=== PATIENT | female | born 1970 | race Caucasian/White ===

== ENCOUNTER 2018-07-28 06:13 | Day surgery (SDC) | payer OTHER ==
[~2018-07-28 06:13] MED LIST: Buffered Lidocaine 1% SYRIN* 1 ML/SYRINGE INTRADERM ONE; Dexamethasone IV* 4 MG/ML 1 ML (4 MG) IV SLOW PU ONE; Famotidine IV* 10 MG/ML 2 ML (20 mg) IV ONE; Lactated Ringers 1000 ML Bag* 1,000 ML IV SCH
[2018-07-28] MEDS ORDERED: Buffered Lidocaine 1% SYRIN* 1 ML/SYRINGE INTRADERM ONE (07:13)
[2018-07-28] MEDS ORDERED: ceFAZolin 2 GM in NS PREMIX(*) 2 GM/100 ML BAG IVPB ONE (07:13)
[2018-07-28] MEDS ORDERED: Famotidine IV* 10 MG/ML 2 ML (20 mg) ONE (09:42)
[2018-07-28] MEDS ORDERED: Midazolam* 1 MG/ML 2 ML VIAL (2 MG) ONE (09:59)
[2018-07-28] MEDS ORDERED: fentaNYL* 50 MCG/ML 2 ML VIAL (100 MCG VIAL) ONE (09:59)
[2018-07-28] MEDS ORDERED: Propofol* 10 MG/ML 20 ML BTL ONE (10:07)
[2018-07-28] MEDS ORDERED: Lidocaine 2% PF * 5 ML VIAL ONE (10:16)
[2018-07-28] MEDS ORDERED: Bupivacaine 0.25% SDV PF* 10 ML VIAL INJ ONE (10:41)
[2018-07-28] MEDS ORDERED: Naloxone* 0.4 MG/ML 1 ML VIAL IV PRN (11:17)
[2018-07-28] MEDS ORDERED: Levalbuterol 0.63MG/3ML NEB* UNIT OF USE INH PRN (11:17)
[2018-07-28] MEDS ORDERED: Levalbuterol 0.63MG/3ML NEB* UNIT OF USE INH ONE (11:18)
[2018-07-28] MEDS ORDERED: HYDROcodone/ACETAMIN 5-325 MG* 1 TAB ONE (11:29)
[2018-07-28 12:50] VITALS: BP 124/70
--- NOTE | 2018-07-28 14:26 | OP ---
DATE OF OPERATION: 07/28/18 - [facility] DATE OF : 70 SURGEON: Filiberto Davis MD MUSIC COMPOSITION TEACHER: HIRA Ferguson ANESTHESIOLOGIST: Dr. Dueñas. ANESTHESIA: General. PRE-OP DIAGNOSES: 1. Left carpal tunnel syndrome. 2. Left volar wrist ganglion cyst. POST-OP DIAGNOSES: 1. Left carpal tunnel syndrome. 2. Left volar wrist ganglion cyst. OPERATIVE PROCEDURE: 1. Left endoscopic carpal tunnel release. 2. Excision of left volar wrist ganglion cyst. INDICATIONS: Lalitha has the aforementioned conditions. Cyst is quite large; it is in the typical location. The carpal tunnel is bothering her as well. ESTIMATED BLOOD LOSS: 2 mL. COMPLICATIONS: None. FINDINGS: See above and below. DESCRIPTION OF PROCEDURE: Lalitha was seen in the preoperative holding area. The correct side, site, and procedure were identified. We came back to the operating room, anesthesia was induced, the arm was prepped and draped in the usual fashion, and a time-out was performed. The arm was exsanguinated with the Esmarch and the tourniquet was inflated to 250 mmHg. I first made a 1-cm transverse incision just ulnar to the palmaris longus tendon. Dissection was carried down through the subcutaneous tissue and the transverse fascia was split longitudinally and then distally based U flap was created. A skin hook was placed to retract that. I then used the dilators and then placed a MicroAire endoscopic carpal tunnel release device under direct visualization. The transverse carpal ligament was released. I then released the distal antebrachial fascia proximally. Once I confirmed all the release, I went ahead and irrigated out the wound. Skin was closed with 4-0 nylon suture. I then made a lazy S incision over the volar wrist ganglion cyst. Over the radial aspect of the wrist, dissection was carried down. Cyst was encountered inside the FCR tendon sheath. I released the FCR tendon sheath and I excised the entirety of the cyst. I released the subsheath to make sure the cyst was not tracking deep down to the joint. I did follow down and cauterized it at its stalk. Once that was done, the wound was irrigated out. Skin was closed with 4-0 nylon suture. The wound was closed with nylon and a plaster wrist splint was applied. She was then taken to recovery room in stable condition. [id number]/[facility] #: [id number] EARL
== END 2018-07-28 12:56 | disposition home or self-care (01) ==
LOC: OR 06:13
PROVIDERS: ATTEND Orthopaedic Surgery Hand Surgery
DX: G56.02 Carpal tunnel syndrome, left upper limb (principal); M67.432 Ganglion, left wrist; Z79.84 Long term (current) use of oral hypoglycemic drugs; E11.9 Type 2 diabetes mellitus without complications; J44.9 Chronic obstructive pulmonary disease, unspecified; Z72.0 Tobacco use
CPT/HCPCS: 88304; J0690; J2250; J2704; J3010; J3490

== ENCOUNTER 2018-11-07 12:00 | Inpatient (IN) | payer OTHER ==
--- NOTE | 2018-12-24 17:59 | HP ---
Amended report to enter cosigning physician. PREOPERATIVE HISTORY AND PHYSICAL: DATE OF ADMISSION/SURGERY: 12/30/18 SURGEON: Dr. Shaina Barillas* (dictated by HIRA Peraza). PROCEDURE: Right total knee arthroplasty. CHIEF COMPLAINT: Right knee pain. HISTORY OF PRESENT ILLNESS: The patient is a 48-year-old female with more than 10 years of right knee pain that has become progressively unmanageable. She has 8/10 pain in the right knee with swelling and instability and can no longer walk more than a block without severe pain. She has difficulty with stair climbing as well as prolonged standing and has tried anti-inflammatories, supportive brace, ambulatory assistive devices, all without relief. She currently walks with a cane and is seeking surgical intervention for her severe osteoarthritis and pain. PAST MEDICAL HISTORY: Carpal tunnel syndrome; osteoarthritis; genu varum; diabetes; emphysema; insomnia; chronic back pain; radiculopathy; fibromyalgia; GERD; alcoholism, in remission; migraine headaches; hyperlipidemia; decreased hearing; depression; COPD; hypertension; vitamin D deficiency; seizure disorder ; and anxiety. PAST SURGICAL HISTORY: Tubal ligation, left foot surgery, multiple clubfoot surgeries, carpal tunnel release, and breast lumpectomy. She denies anesthetic complications with any of these procedures. CURRENT MEDICATIONS: 1. Meloxicam 15 mg 1 tab by mouth daily. 2. Bupropion HCl ER 150 mg 1 tab by mouth twice daily. 3. Vitamin B complex 1 tab by mouth daily. 4. Sumatriptan succinate 100 mg 1 tab at onset of migraine, may repeat in 2 hours as needed. 5. Simvastatin 40 mg 1 tab p.o. daily. 6. Quetiapine fumarate 300 mg 1 tab by mouth q.h.s. 7. Albuterol sulfate (2.5/3 mL) 0.083% inhaled as needed. 8. Advair Diskus 250/50 mcg/dose 1 puff twice daily. 9. Incruse Ellipta 62.5 mcg/INH inhaled 1 puff daily by mouth. 10. Omeprazole 40 mg 1 capsule by mouth daily. 11. Lyrica 100 mg 1 capsule by mouth every 12 hours. 12. Cyclobenzaprine HCl 10 mg 1 tab by mouth 3 times daily as needed for spasms. 13. Oxycodone HCl 5 mg 1 tab by mouth every 8 hours. 14. Duloxetine HCl 60 mg 1 tab by mouth daily. 15. Metformin HCl 500 mg 1 tab by mouth daily. 16. Calcium carbonate/vitamin D 600/400 mg/unit, take 1 tablet by mouth twice daily. 17. Ventolin HFA 108 (90 base) mcg/ACT 2 puffs by mouth every 4 to 6 hours as needed. 18. Chantix half a tab by mouth daily. ALLERGIES: CODEINE causes nausea, ASPIRIN causes GI upset. FAMILY HISTORY: Positive for breast cancer, drug addiction, but no heart disease or diabetes. SOCIAL HISTORY: She lives with her boyfriend, who will be caring for her postoperatively. She is currently on disability and not working. She smokes less than a pack a day of cigarettes. She denies alcohol or recreational drug use and does ambulate with cane. REVIEW OF SYSTEMS: Fourteen systems were reviewed with the patient today and are positive for right knee pain. Negative for fevers, chills, shortness of breath with exertion, chest pain, nausea, vomiting, headache, or dizziness. Review of systems is otherwise negative. PHYSICAL EXAMINATION GENERAL: She is a well-developed, well-nourished female, seated in exam chair, in no acute distress, with appropriate affect. VITAL SIGNS: Height 56 inches, weight 150 pounds. Pulse 70, blood pressure 144 /82, respirations 16. HEENT: Normocephalic, atraumatic. Hearing and vision are grossly intact, with extraocular movements intact. NECK: The trachea is midline and symmetrical. CHEST: Lungs are clear to auscultation. No wheezes, rales, or rhonchi noted. CARDIO: Regular rate and rhythm. Normal S1, S2. No murmurs, rubs, or gallops noted. ABDOMEN: Nondistended, nontender. Bowel sounds present. GENITOURINARY: Deferred. MUSCULOSKELETAL: Right lower extremity: Skin is pink, dry, and intact without abrasions or wounds. Mild effusion is noted at the knee and the patient has a varus deformity with severe subluxation and instability. She extends the knee to 5 degrees, flexes to 120 with pain and has significant varus and valgus instability. She has 5/5 strength against resistance in 4 planes in the right ankle. Sensation is intact with a 2+ dorsalis pedis pulse. IMAGING: Multiple views of the patient's right knee show end-stage osteoarthritis with severe subluxation above the tibia on the femur. She has [id number] contact medially and in the patellofemoral compartment. ASSESSMENT: Right knee osteoarthritis. PLAN: Right total knee replacement with Dr. Barillas. The patient's questions were answered and she would like to proceed. Dr. Barillas discussed the risks and benefits of surgery at today's visit. Pain medications will be dispensed postoperatively and the patient will follow up with our office 10 to 14 days after discharge. HIRA DORMAN [id number]/[facility] #: [id number] EARL
[2018-12-29] MEDS ORDERED: Buffered Lidocaine 1% SYRIN* 1 ML/SYRINGE INTRADERM ONE (13:28)
[2018-12-30] MEDS ORDERED: Tranexamic Acid 1,000 MG in NS 0.9% 50 ML* (outpatient use) IV SCH ×2
[2018-12-30] MEDS ORDERED: Dexamethasone IV* 4 MG/ML 1 ML (4 MG) IV SLOW PU ONE (06:00)
[2018-12-30] MEDS ORDERED: Levalbuterol 0.63MG/3ML NEB* UNIT OF USE INH ONE ×4 (06:00→18:31)
[2018-12-30] MEDS ORDERED: Lactated Ringers 1000 ML Bag* 1,000 ML IV SCH (06:00)
--- OUTSIDE RECORDS SUMMARY | 2018-12-30 13:20 | XMS REPORT | Continuity of Care Document ---
:1970 External Reference #:[id number] Demographics Address [address] [facility] 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 [phone] Compensation Administrator Problems Description No Information Available Social History Type Date Description Comments Sex Unknown Cigarette Use Current Cigarette Smoker 1 Pack Daily ETOH Use Currently consumes alcohol Tobacco Use Start: Unknown Patient is a current smoker, smokes every day Smoking Status Reviewed: 12/19/18 Patient is a current smoker, smokes every day Allergies, Adverse Reactions, Alerts Active Allergies Reaction Severity Comments Date Aspirin 02/13/2013 Codeine 02/13/2013 Medications Active Medications SIG Qnty Indications Ordering Date Provider Cristin sipo every 12 60caps Cornelio Parker, 11/23/2016 100mg Capsules hours as DO, MPH directed chronic pain patient Oxycodone HCL si by mouth 90tabs Cornelio Parker, 07/29/2013 5mg Tablets every 8 hours as , MPH directed chronic pain patient Chantix Starting Month Unknown George 0.5mg X 11 & 1 mg X 42 Tablets Metformin HCL 1 by mouth twice Unknown 500mg Tablets a day Albuterol Sulfate sig: as directed Unknown (2.5mg/3ML) 0.083% Nebulizer Advair HFA as needed Unknown 45-21mcg/Act Aerosol Vitamin D3 Super 1 by mouth daily Unknown Strength 2000Unit Capsules Quetiapine Fumarate 1 by mouth at Unknown 300mg bedtime Tablets Bupropion HCL ER (SR) 1 by mouth twice Unknown 150mg daily Tablets ER 12HR Cyclobenzaprine HCL si by mouth Unknown 10mg three times a Tablets day as directed Omeprazole si-2 by mouth Unknown 40mg Capsules DR every day Calcium 500+D Unknown [id number] Tablets Simvastatin take once during Unknown 40mg Tablets evevning Mobic si po qd ud 30tabs Unknown 7.5mg Tablets Vitamin B Complex qd Unknown Tablets Magnesium Oxide qd Unknown 400mg Tablets Sumatriptan Succinate si po q8h 15tabs Unknown 100mg onset headache Tablets Albuterol Inhalation 2 puff bid 1units Unknown 90mcg/Dose Aerosol Immunizations Description No Information Available Vital Signs Date Vital Result Comment 12/19/2018 2:03pm BP Systolic 132 mmHg BP Diastolic 84 mmHg Heart Rate 88 /min Respiratory Rate 20 /min Height 57 inches 4'9" Weight 154.00 lb Pain Level 8 Pain at this time. Pain Level With Medicine 8 on average with meds Pain Level Without Medicine 9 without meds BMI (Body Mass Index) 33.3 kg/m2 12/05/2018 10:39am BP Systolic 136 mmHg BP Diastolic 84 mmHg Heart Rate 82 /min Respiratory Rate 20 /min Height 57 inches 4'9" Weight 153.00 lb Pain Level 9 Pain at this time. Pain Level With Medicine 8 on average with meds Pain Level Without Medicine 10 01/29 without meds BMI (Body Mass Index) 33.1 kg/m2 Results Description No Information Available Procedures Date Code Description Status 12/05/2018 89758 Therapeutic, Prophylactic Or Diagnostic Injection Subq/Im Completed 10/02/2018 70760 Therapeutic, Prophylactic Or Diagnostic Injection Subq/Im Completed 08/29/201853139 Inject Tendon/Ligament Completed 08/29/201869343 Inject Tendon/Ligament Completed 08/29/201868118 Inject Tendon/Ligament Completed 08/29/201841690 Inject Tendon/Ligament Completed 08/29/2018 Injection, Tendon Origin/Insertion Completed 08/29/2018 Injection, Tendon Origin/Insertion Completed 08/29/2018 Injection, Single Or Mutiple Trigger Points One Or Two Completed Muscles 08/29/2018 85616 Injection For Nerve Block, Other Peripheral Nerve Or Completed Branch 08/29/2018 87195 Therapeutic, Prophylactic Or Diagnostic Injection Subq/Im Completed 08/01/2018 73207 Omt 3-4 Body Regions Completed 08/01/2018 89748 Therapeutic, Prophylactic Or Diagnostic Injection Subq/Im Completed 07/02/2018 48102 Therapeutic, Prophylactic Or Diagnostic Injection Subq/Im Completed 07/02/2018 34931 Brief Emotional/Behav Assessment W/ Scoring Doc Per Completed Standard Inst 07/02/2018 Inject Tendon/Ligament Completed 07/02/2018 Inject Tendon/Ligament Completed 07/02/201820836 Inject Tendon/Ligament Completed 07/02/2018 Inject Tendon/Ligament Completed Medical Devices Description No Information Available Encounters Type Date Location Provider Dx Diagnosis Office Visit 12/05/2018 Main Office as Of Cornelio Parker DO G89.29 Other chronic pain 10:15a 05/23/13 MPH M15.0 Primary generalized (osteo)arthritis M54.17 Radiculopathy, lumbosacral region M54.2 Cervicalgia Z79.891 assisted (current) use of opiate analgesic R53.83 Other fatigue Office Visit 11/05/2018 3:15p Main Office as Cornelio Parker G89.29 Other chronic Of 05/23/13 DO, MPH pain M15.0 Primary generalized (osteo)arthritis M54.2 Cervicalgia M54.17 Radiculopathy, lumbosacral region Z79.891 assisted (current) use of opiate analgesic Office Visit 10/02/2018 11:15a Main Office as Cornelio Parker G89.29 Other chronic Of 05/23/13 DO, MPH pain M15.0 Primary generalized (osteo)arthritis M54.5 Low back pain M54.2 Cervicalgia M54.17 Radiculopathy, lumbosacral region R53.83 Other fatigue 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 Office Visit 08/29/2018 11:30a Main Office as Cornelio Parker G89.29 Other chronic Of 05/23/13 DO, MPH pain M15.0 Primary generalized (osteo)arthritis M54.5 Low back pain M54.17 Radiculopathy, lumbosacral region M54.2 Cervicalgia M65.88 Other synovitis and tenosynovitis, other site M79.18 Myalgia, other site R53.83 Other fatigue 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 Office Visit 08/01/2018 11:00a Main Office as Cornelio Parker, G89.29 Other chronic Of 05/23/13 DO, MPH pain M15.0 Primary generalized (osteo)arthritis M54.5 Low back pain M99.03 Segmental and somatic dysfunction of lumbar region M54.2 Cervicalgia M99.01 Segmental and somatic dysfunction of cervical region M54.6 Pain in thoracic spine M99.02 Segmental and somatic dysfunction of thoracic region R53.83 Other fatigue Z79.891 assisted (current) use of opiate analgesic Office Visit 07/02/2018 11:00a Main Office as Cornelio Parker, G89.29 Other chronic Of 05/23/13 DO, MPH pain M15.0 Primary generalized (osteo)arthritis M54.2 Cervicalgia M54.5 Low back pain M65.88 Other synovitis and tenosynovitis, other site R53.83 Other fatigue 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 Z13.31 Encounter for screening for depression Assessments Date Code Description Provider 12/19/2018 G89.29 Other chronic pain Parker, Cornelio, DO, MPH 12/19/2018 M15.0 Primary generalized (osteo)arthritis Parker, Cornelio, DO, MPH 12/19/2018 M54.2 Cervicalgia Parker, Cornelio, DO, MPH 12/19/2018 M54.17 Radiculopathy, lumbosacral region Parker, Cornelio, DO, MPH 12/19/2018 M79.604 Pain in right leg Parker, Cornelio, DO, MPH 12/19/2018 R53.1 Weakness Parker, Cornelio, DO, MPH 12/19/2018 Z79.891 assisted (current) use of opiate analgesic Parker, Cornelio , DO, MPH 12/05/2018 G89.29 Other chronic pain Parker, Cornelio, DO, MPH 12/05/2018 M15.0 Primary generalized (osteo)arthritis Parker, Cornelio, DO, MPH 12/05/2018 M54.17 Radiculopathy, lumbosacral region Parker, Cornelio, DO, MPH 12/05/2018 M54.2 Cervicalgia Parker, Cornelio, DO, MPH 12/05/2018 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 Parker, Cornelio , DO, MPH 12/05/2018 R53.83 Other fatigue Parker, Cornelio, DO, MPH 11/05/2018 G89.29 Other chronic pain Parker, Cornelio, DO, MPH 11/05/2018 M15.0 Primary generalized (osteo)arthritis Parker, Cornelio, DO, MPH 11/05/2018 M54.2 Cervicalgia Parker, Cornelio, DO, MPH 11/05/2018 M54.17 Radiculopathy, lumbosacral region Parker, Cornelio, DO, MPH 11/05/2018 Z79.891 assisted (current) use of opiate analgesic Parker, Cornelio , DO, MPH 10/02/2018 G89.29 Other chronic pain Parker, Cornelio, DO, MPH 10/02/2018 M15.0 Primary generalized (osteo)arthritis Parker, Cornelio, DO, MPH 10/02/2018 M54.5 Low back pain Parker, Cornelio, DO, MPH 10/02/2018 M54.2 Cervicalgia Parker, Cornelio, DO, MPH 10/02/2018 M54.17 Radiculopathy, lumbosacral region Parker, Cornelio, DO, MPH 10/02/2018 R53.83 Other fatigue Parker, Cornelio, DO, MPH 10/02/2018 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 Parker, Cornelio , DO, MPH 08/29/2018 G89.29 Other chronic pain Parker, Cornelio, DO, MPH 08/29/2018 M15.0 Primary generalized (osteo)arthritis Parker, Cornelio, DO, MPH 08/29/2018 M54.5 Low back pain Parker, Cornelio, DO, MPH 08/29/2018 M54.17 Radiculopathy, lumbosacral region Parker, Cornelio, DO, MPH 08/29/2018 M54.2 Cervicalgia Parker, Cornelio, DO, MPH 08/29/2018 M65.88 Other synovitis and tenosynovitis, other Parker, Cornelio, DO , MPH site 08/29/2018 M79.18 Myalgia, other site Parker, Cornelio, DO, MPH 08/29/2018 R53.83 Other fatigue Parker, Cornelio, DO, MPH 08/29/2018 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 Parker, Cornelio , DO, MPH 08/01/2018 G89.29 Other chronic pain Parker, Cornelio, DO, MPH 08/01/2018 M15.0 Primary generalized (osteo)arthritis Parker, Cornelio, DO, MPH 08/01/2018 M54.5 Low back pain Parker, Cornelio, DO, MPH 08/01/2018 M99.03 Segmental and somatic dysfunction of lumbar Parker, Cornelio, DO, MPH region 08/01/2018 M54.2 Cervicalgia Parker, Cornelio, DO, MPH 08/01/2018 M99.01 Segmental and somatic dysfunction of Parker, Cornelio, DO, MPH cervical region 08/01/2018 M54.6 Pain in thoracic spine Parker, Cornelio, DO, MPH 08/01/2018 M99.02 Segmental and somatic dysfunction of Parker, Cornelio, DO, MPH thoracic region 08/01/2018 R53.83 Other fatigue Parker, Cornelio, DO, MPH 08/01/2018 Z79.891 assisted (current) use of opiate analgesic Parker, Cornelio , DO, MPH 07/02/2018 G89.29 Other chronic pain Parker, Cornelio, DO, MPH 07/02/2018 M15.0 Primary generalized (osteo)arthritis Parker, Cornelio, DO, MPH 07/02/2018 M54.2 Cervicalgia Parker, Cornelio, DO, MPH 07/02/2018 M54.5 Low back pain Parker, Cornelio, DO, MPH 07/02/2018 M65.88 Other synovitis and tenosynovitis, other Parker, Cornelio, DO , MPH site 07/02/2018 R53.83 Other fatigue Parker, Cornelio, DO, MPH 07/02/2018 Z79.891 assisted (current) use of opiate analgesic Cornelio Parker DO MPH 07/02/2018 Z13.31 Encounter for screening for depression Cornelio Parker DO, MPH Plan of Treatment Future Appointment(s):01/16/2019 11:45 am - Cornelio Parker DO, MPH at Main Office as Of 05/23/1407 - Cornelio Parker DO, MPHG89.29 Other chronic painComments:Chronic. Symptoms and complaints discussed and reviewed today. No significant changes in physical findings. Continue current medical pain management.M15.0 Primary generalized (osteo)arthritisComments:Chronic. Symptoms and complaints discussed and reviewed today. No significant changes in physical findings. Continue current medical pain management.M54.2 CervicalgiaComments: Chronic. Symptoms and complaints discussed and reviewed today. No significant changes in physical findings. Continue current medical pain management.M54.17 Radiculopathy, lumbosacral regionComments:Chronic. Symptoms and complaints discussed and reviewed today. No changes in physical findings; patient is stable on current medical therapy.M79.604 Pain in right legComments:Chronic. Symptoms and complaints discussed and reviewed today. Patient will need PCP assistance to see Orthopedic due to insurance restrictions. Will ask PCP for assistance with this referral. Patient unsteady gait and weakness.R53.1 WeaknessComments:Chronic. Symptoms and complaints discussed and reviewed today. Symptoms and complaints discussed and reviewed today. Patient will need PCP assistance to see Orthopedic due to insurance restrictions. Will ask PCP for assistance with this referral. Patient unsteady gait and weakness.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New Labs:Urine Drug Screen, Ordered: 12/19Comments:Urine drug screen sample taken. Rapid Point of Care Cup was reviewed in office with patient. Will send out UDT Rapid to Quantitative lab for confirmation testing. Urine Drug Testing (UDT) was done today to monitor opiate use and to monitor possible use of illicit substances. I will discuss the results at the next appointment from the Quantitative lab.The following tests were ordered:6 AM, AMPH, KAIDEN, GLORY, BUP, CARIS, COCM, COT, ETG, FENT, MCSHSG, OPI, OXY, PCP, TAPEN, XTSY, ZOLP. A urine drug test (UDT) was ordered for this patient and collected on site today. Creatinine has been ordered as well for specimen validity, not for kidney function. Preliminary UDT results are not final and should not be used to determine patient care or plan of treatment. Initially a qualitative immunoassay screen will be done. Any inconsistent or positive findings will be further tested with a more comprehensive quantitative confirmation LCMS study. It is part of the treatment process of prescribing controlled substances and is considered standard of care.AllComments:Continue current medical pain management; injection therapy, osteopathic manipulation, PT / modalities, and consults as needed to manage chronic pain.Non - opioid pain management discussed and optionsdiscussed.Side effects discussed; anticipatory guidance given. Patient clearly understand and agree with all medical treatments and suggestions. 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 Importance of regular nutrition throughout the day discussed.Activity as toleratedContinue with PCP Functional Status Description No Information Available Mental Status Description No Information Available Referrals Refer to Reason for Referral Status Appt Date Cornelio Parker D.O. MPH Created [address] [place] [address] [address] [place] [address] [phone]
--- OUTSIDE RECORDS SUMMARY | 2018-12-30 13:20 | XMS REPORT | Continuity of Care Document ---
:1970 External Reference #:[id number] Author Name Shaina Barillas M.D. (transmitted by agent of provider Abril Kitchen) Address [address] [place] [address] [place] [address] Care Team Providers Name Role Phone Royce Pittman MD - Orthopaedic Care Team Information Signal Manager Surgery Wendy Marie M.D. - Internal Care Team Information Signal Manager Medicine Problems Active Problems Provider Date Convulsive syncope Alberto Luciano M.D. 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 Onset: 07/30/2018 Ganglion cyst of left wrist Filiberto Davis MD Onset: 07/04/2018 Carpal tunnel syndrome of left wrist Filiberto Davis MD Onset: 07/04/2018 Social History Type Date Description Comments Sex Unknown Tobacco Use Start: Unknown Light tobacco smoker (10 or fewer cigarettes/day) Tobacco Use Start: Unknown Current Cigarette Smoker 5-10 Cigarettes Daily Smoking Status Reviewed: 12/24/18 Current Cigarette Smoker 5-10 Cigarettes Daily ETOH Use Denies alcohol use Recreational Drug Use Denies Drug Use Tobacco Use Start: Unknown Heavy tobacco smoker (more than 10 cigarettes/day) Exercise Type/Frequency Exercises sporadically Allergies, Adverse Reactions, Alerts Active Allergies Reaction Severity Comments Date Codeine 06/17/2014 Aspirin 06/17/2014 Inactive Allergies NKDA 09/27/2013 Medications Active Medications SIG Qnty Indications Ordering Date Provider Chantix 1/2 tab by mouth Unknown daily Ventolin HFA 2 puffs by mouth Frank, 108(90Base) every 4-6 hours Joann Nguyen mcg/Act Aerosol as needed Calcium Take One Tablet Unknown Carbonate-Vitamin D By Mouth Twice A Day [id number] Tablets Metformin HCL 1 tab by mouth 60tabs [facility], 500mg Tablets every day Joann Nguyen Duloxetine HCL 1 cap by mouth 90caps [facility], 60mg Caps DR every day Joann Nguyen Part Oxycodone HCL Take One Tablet Unknown 5mg Tablets By Mouth Every 8 Hours as Directed Maximum Daily Dose Three Tablets Cyclobenzaprine HCL 1 tab by mouth 30tabs [facility], 10mg three times a Joann Nguyen Tablets day as needed Lyrica Take One Capsule Unknown 100mg Capsules By Mouth Every 12 Hours as Directed Maximum Daily Dose 2 Omeprazole Take One Capsule Unknown 40mg Capsules DR By Mouth Every Day Incruse Ellipta inhale one puff [facility], 62.5mcg/Inh every day by Joann Nguyen Aerosol mouth Advair Diskus 1 puff bid Lyn Willams, LOCKSTITCH SHOULDER JOINER 250-50mcg/Dose Aerosol Albuterol Sulfate as needed Lyn Willmas, LOCKSTITCH SHOULDER JOINER (2.5mg/3ML) 0.083% Nebulizer Quetiapine Fumarate one tablet every 30tabs Patricia-Allen, 300mg night at bedtime Kristal, LOCKSTITCH SHOULDER JOINER Tablets Simvastatin 1 po qd Patricia-Allen, 40mg Tablets Kristal, LOCKSTITCH SHOULDER JOINER Sumatriptan Succinate 1 tab at onset Petr Patel 100mg of migraine, may JONAS Mart Tablets repeat in 2 hours as needed B Complex 1 po qd Petr Patel Capsules JTerrell, RPA Bupropion HCL ER (SR) tab by mouth 30tabs Patricia-Allen, 150mg twice a day Kristal, LOCKSTITCH SHOULDER JOINER Tablets ER 12HR Meloxicam 1 by mouth every 30tabs Unknown 15mg Tablets day History Medications Tramadol HCL 1-2 tablets by 20tabs Filiberto Davis MD 07/28/2018 - 50mg mouth every 6 09/17/2018 Tablets hours as needed pain Immunizations Description No Information Available Vital Signs Date Vital Result Comment 12/24/2018 10:27am Height 56 inches 4'8" Weight 150.75 lb Heart Rate 70 /min BP Systolic 144 mmHg BP Diastolic 82 mmHg Respiratory Rate 14 /min Pain Level 8 BMI (Body Mass Index) 33.8 kg/m2 09/19/2018 10:47am Height 56 inches 4'8" Weight 160.00 lb Heart Rate 115 /min BP Systolic Sitting 134 mmHg BP Diastolic Sitting 70 mmHg Respiratory Rate 20 /min Pain Level 0 BMI (Body Mass Index) 35.9 kg/m2 Results Test Date Facility Test Result H/L Range Note Inr/Protime 12/24/2018 [facility] Inr 0.99 Normal 0.82-1.[address] [place] [address] [phone] Laboratory test 12/24/2018 [facility] Partial 33.4 seconds Normal 26.0-38.[address] [place] [address] PTT [phone] CBC Auto Diff 12/24/2018 [facility] White Blood 9.2 10^3/uL Normal 3.5-10.[address] [place] [address] [phone] Red Blood Count 4.24 10^6/uL Normal 3.70-4.87 Hemoglobin 12.0 g/dL Normal 12.0-16.0 Hematocrit 37 % Normal 35-47 Mean Corpuscular Volume 86 fL Normal 80-97 Mean Corpuscular Hemoglobin 28 pg Normal 27-31 Mean Corpuscular HGB Conc 33 g/dL Normal 31-36 Red Cell Distribution Width 16 % High 10-15 Platelet Count 301 10^3/uL Normal 150-450 Mean Platelet Volume 6.9 fL Low 7.4-10.4 Abs Neutrophils 5.3 10^3/uL Normal 1.5-7.7 Abs Lymphocytes 2.6 10^3/uL Normal 1.0-4.8 Abs Monocytes 0.9 10^3/uL High 0-0.8 Abs Eosinophils 0.3 10^3/uL Normal 0-0.6 Abs Basophils 0.1 10^3/uL Normal 0-0.2 Abs Nucleated RBC 0.0 10^3/uL Granulocyte % 57.2 % Lymphocyte % 28.6 % Monocyte % 10.1 % Eosinophil % 3.2 % Basophil % 0.9 % Nucleated Red Blood Cells % 0.1 Comp Metabolic 12/24/2018 [facility] Sodium 136 mmol/L Normal 135-[address] [place] [address] [phone] Potassium 4.1 mmol/L Normal 3.5-5.0 Chloride 102 mmol/L Normal 101-111 Co2 Carbon Dioxide 27 mmol/L Normal 22-32 Anion Gap 7 mmol/L Normal 2-11 Glucose 110 mg/dL High 70-100 Blood Urea Nitrogen 7 mg/dL Normal 6-24 Creatinine 0.69 mg/dL Normal 0.51-0.95 BUN/Creatinine Ratio 10.1 Normal 8-20 Calcium 9.2 mg/dL Normal 8.6-10.3 Total Protein 6.5 g/dL Normal 6.4-8.9 Albumin 4.3 g/dL Normal 3.2-5.2 Globulin 2.2 g/dL Normal 2-4 Albumin/Globulin Ratio 2.0 Normal 1-3 Total Bilirubin 0.30 mg/dL Normal 0.2-1.0 Alkaline Phosphatase 102 U/L Normal 34-104 Alt 28 U/L Normal 7-52 Ast 44 U/L High 13-39 Egfr Non- 90.8 >60 Egfr 109.9 >60 2 Type & Screen 12/24/2018 [facility] Patient Blood Type O Negative [address] [place] [address] [phone] Antibody Screen NEGATIVE Laboratory test 07/28/2018 [facility] Surgical SEE RESULT [address] [place] [address] [phone] Laboratory test 07/28/2018 [facility] Point of Care 128 mg/dL High 70-[address] Gl[place] 0 [place] [address] [phone] 1 Standard intensity warfarin therapeutic range: 2.0-3.0 High intensity warfarin therapeutic range: 2.5-3.5 2 Because ethnic data is not always readily available, this report includes an eGFR for both -Americans and non- Americans. The National Kidney Disease Education Program (NKDEP) does not endorse the use of the MDRD equation for patients that are not between the ages of 18 and 70, are , have extremes of body size, muscle mass, or nutritional status, or are non- or non-. According to the National Kidney Foundation, irrespective of diagnosis, the stage of the disease is based on the level of kidney function: Stage Description GFR(mL/min/1.73 m(2)) 1 Kidney damage with normal or decreased GFR 90 2 Kidney damage with mild decrease in GFR 60-89 3 Moderate decrease in GFR 30-59 4 Severe decrease in GFR 15-29 5 Kidney failure <15 (or dialysis) 3 SEE RESULT BELOW Name: LALITHA GARCIA : [address]: Filiberto Davis MD Acct: [id number] Unit: [id number] AGE: 47 Location: OR Re07/28/18 SEX: F Status: [place] SPEC: [id number] CONSTANCE: 07/28/18- SUBM DR: Filiberto Davis MD REQ: [id number] RECD: 07/28/18 STATUS: SOUT _ ORDERED: LEVEL 3 FINAL DIAGNOSIS Soft tissue, left wrist, excision: -- Ganglion cyst. PRE-OPERATIVE DIAGNOSIS Left carpal tunnel and ganglion cyst GROSS DESCRIPTION The specimen is received in formalin labeled, Left Wrist Ganglion Cyst, and consists of two nelson-white to yellow irregular rubbery fibrous and adipose tissue fragments aggregating 2.8 x 1.4 x 0.3 cm. Business Services Sales Agent sections, one cassette. Signed by and Reported on: Chacorta Schuster MD 01/08 1243 END OF REPORT DEPARTMENT OF PATHOLOGY, [address] [place] [address] Chacorta Schuster M.D. Director [facility] # [id number] 4 Associate Sales Representative: [id number] Procedures Date Code Description Status 07/28/2018 29410 Endoscopy Wrist Surg W/Release Of Transverse Carpal Completed Ligament 07/28/2018 70844 Endoscopy Wrist Surg W/Release Of Transverse Carpal Completed Ligament 07/28/2018 01412 Excision Ganglion Wrist/ Dorsal Or Volar; Primary Completed 07/28/2018 18843 Excision Ganglion Wrist/ Dorsal Or Volar; Primary Completed 07/04/2018 40251 Rad Exam; Wrist, Comp, Min 3 Views Completed 07/03/2018 75446 Xray Knee 3 Views Completed Medical Devices Description No Information Available Encounters Type Date Location Provider Dx Diagnosis Office Visit 09/12/2018 Orthopedic Shaina Barillas, M25.561 Pain in right 2:45p Services Of [facility] M[facility] knee M25.461 Effusion, right knee M17.11 Unilateral primary osteoarthritis, right knee Office Visit 07/30/2018 11:00a Orthopedic Services Shaina Barillas, M25.561 Pain in right Of C.M.A. M.D. knee M17.11 Unilateral primary osteoarthritis, right knee M25.461 Effusion, right knee M25.361 Other instability, right knee Office Visit 07/04/2018 9:30a Orthopedic Filiberto G56.02 Carpal tunnel Services Of Shy Davis MD syndrome, left AT [place] upper limb M67.432 Ganglion, left wrist Office Visit 07/03/2018 Orthopedic Eran Sequeira M17.11 Unilateral primary 11:00a Services Of Shy Garcia MD osteoarthritis, right AT [place] knee M25.361 Other instability, right knee M25.561 Pain in right knee Assessments Date Code Description Provider 12/24/2018 M25.561 Pain in right knee Shainanikolas Barillas M.D. 12/24/2018 M25.461 Effusion, right knee Shaina Barillas M.D. 12/24/2018 M17.11 Unilateral primary osteoarthritis, right knee Shaina Barillas M.D. 09/19/2018 G56.02 Carpal tunnel syndrome, left upper limb Filiberto Davis MD 09/19/2018 M67.432 Ganglion, left wrist Filiberto Davis MD 09/19/2018 Z47.89 Encounter for other orthopedic aftercare Filiberto Davis MD 09/12/2018 M25.561 Pain in right knee Shaina Barillas M.D. 09/12/2018 M25.461 Effusion, right knee Shaina Barillas M.D. 09/12/2018 M17.11 Unilateral primary osteoarthritis, right knee Shaina Barillas M.D. 08/15/2018 G56.02 Carpal tunnel syndrome, left upper limb Filiberto Davis MD 08/15/2018 M67.432 Ganglion, left wrist Filiberto Davis MD 08/15/2018 Z47.89 Encounter for other orthopedic aftercare Filiberto Davis MD 07/30/2018 M25.561 Pain in right knee Shaina Barillas M.D. 07/30/2018 M17.11 Unilateral primary osteoarthritis, right knee Shaina Barillas M.D. 07/30/2018 M25.461 Effusion, right knee Shaina Barillas M.D. 07/30/2018 M25.361 Other instability, right knee Shaina Barillas M.D. 07/28/2018 G56.02 Carpal tunnel syndrome, left upper limb HIRA Ferguson 07/28/2018 G56.02 Carpal tunnel syndrome, left upper limb Filiberto Davis MD 07/28/2018 M67.432 Ganglion, left wrist HIRA Ferguson 07/28/2018 M67.432 Ganglion, left wrist Filiberto Davis MD 07/04/2018 G56.02 Carpal tunnel syndrome, left upper limb Filiberto Davis MD 07/04/2018 M67.432 Ganglion, left wrist Filiberto Davis MD 07/03/2018 M17.11 Unilateral primary osteoarthritis, right knee Eran Garcia MD 07/03/2018 M25.361 Other instability, right knee Eran Garcia MD 07/03/2018 M25.561 Pain in right knee Eran Garcia MD Plan of Treatment Future Appointment(s):01/12/2019 10:00 am - Shaina Barillas M.D. at [facility]12/24/2018 - Shaina Barillas M.D.M25.561 Pain in right kneeFollow up:Follow up: 10-14 days llzhtbN31.461 Effusion, right kneeM17.11 Unilateral primary osteoarthritis, right knee Functional Status Description No Information Available Mental Status Description No Information Available Referrals Description No Information Available
--- OUTSIDE RECORDS SUMMARY | 2018-12-30 13:20 | XMS REPORT | Continuity of Care Document ---
:1970 External Reference #:[id number] Demographics Address [address] [facility] 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 [phone] Chocolatier Problems Description No Information Available Social History [...] Capsules DR every day Calcium 500+D Unknown [id number] Tablets Simvastatin take once during Unknown 40mg [...] Available Procedures Date Code Description Status 12/05/2018 73222 Therapeutic, Prophylactic Or Diagnostic Injection Subq/Im Completed 10/02/2018 96569 Therapeutic, Prophylactic Or Diagnostic Injection Subq/Im Completed 08/29/201804418 Inject Tendon/Ligament Completed 08/29/201883593 Inject Tendon/Ligament Completed 08/29/201895027 Inject Tendon/Ligament Completed 08/29/201834298 Inject Tendon/Ligament Completed 08/29/2018 Injection, Tendon Origin/Insertion Completed 08/29/2018 Injection, Tendon Origin/Insertion Completed 08/29/2018 Injection, Single Or Mutiple Trigger Points One Or Two Completed Muscles 08/29/2018 82514 Injection For Nerve Block, Other Peripheral Nerve Or Completed Branch 08/29/2018 81865 Therapeutic, Prophylactic Or Diagnostic Injection Subq/Im Completed 08/01/2018 50059 Omt 3-4 Body Regions Completed 08/01/2018 29250 Therapeutic, Prophylactic Or Diagnostic Injection Subq/Im Completed 07/02/2018 56875 Therapeutic, Prophylactic Or Diagnostic Injection Subq/Im Completed 07/02/2018 88172 Brief Emotional/Behav Assessment W/ Scoring Doc Per Completed Standard Inst 07/02/2018 Inject Tendon/Ligament Completed 07/02/2018 Inject Tendon/Ligament Completed 07/02/201861648 Inject Tendon/Ligament Completed 07/02/2018 Inject Tendon/Ligament Completed Medical Devices Description No Information Available Encounters Type Date Location Provider Dx Diagnosis Office Visit 12/05/2018 Main Office as Of Cornelio Parker DO G89.29 Other chronic pain 10:15a 05/23/13 MPH M15.0 Primary generalized (osteo)arthritis M54.17 Radiculopathy, lumbosacral region M54.2 Cervicalgia Z79.891 [facility] (current) use of opiate analgesic R53.83 Other fatigue Office Visit 11/05/2018 3:15p Main Office as Cornelio Parker G89.29 Other chronic Of 05/23/13 DO, MPH pain M15.0 Primary generalized (osteo)arthritis M54.2 Cervicalgia M54.17 Radiculopathy, lumbosacral region Z79.891 [facility] (current) use of opiate analgesic Office Visit 10/02/2018 11:15a Main Office as Cornelio Parker G89.29 Other chronic Of 05/23/13 DO, MPH pain M15.0 Primary generalized (osteo)arthritis M54.5 Low back pain M54.2 Cervicalgia M54.17 Radiculopathy, lumbosacral region R53.83 Other 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 Office Visit 08/29/2018 11:30a Main Office as Cornelio Parker G89.29 Other chronic Of 05/23/13 DO, MPH pain M15.0 Primary generalized (osteo)arthritis M54.5 Low back pain M54.17 Radiculopathy, lumbosacral region M54.2 Cervicalgia M65.88 Other synovitis and tenosynovitis, other site M79.18 Myalgia, other site R53.83 Other 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 Office Visit [...] of thoracic region R53.83 Other fatigue Z79.891 [facility] (current) use of opiate analgesic Office Visit 07/02/2018 11:00a Main Office as Cornelio Parker, G89.29 Other chronic Of 05/23/13 DO, MPH pain M15.0 Primary generalized (osteo)arthritis M54.2 Cervicalgia M54.5 Low back pain M65.88 Other synovitis and tenosynovitis, other site R53.83 Other 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 Z13.31 Encounter for screening for depression Assessments Date Code Description Provider 12/05/2018 G89.29 Other chronic pain Parker, Cornelio, DO, MPH 12/05/2018 M15.0 Primary generalized (osteo)arthritis Parker, Cornelio, DO, MPH 12/05/2018 M54.17 Radiculopathy, lumbosacral region Parker, Cornelio, DO, MPH 12/05/2018 M54.2 Cervicalgia Parker, Cornelio, DO, MPH 12/05/2018 Z79.891 [facility] (current) use of opiate analgesic Parker, Cornelio , DO, MPH 12/05/2018 R53.83 Other fatigue Parker, Cornelio, DO, MPH 11/05/2018 G89.29 Other chronic pain Parker, Cornelio, DO, MPH 11/05/2018 M15.0 Primary generalized (osteo)arthritis Parker, Cornelio, DO, MPH 11/05/2018 M54.2 Cervicalgia Parker, Cornelio, DO, MPH 11/05/2018 M54.17 Radiculopathy, lumbosacral region Parker, Cornelio, DO, MPH 11/05/2018 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 Parker, Cornelio , DO, MPH 10/02/2018 G89.29 Other chronic pain Parker, Cornelio, DO, MPH 10/02/2018 M15.0 Primary generalized (osteo)arthritis Parker, Cornelio, DO, MPH 10/02/2018 M54.5 Low back pain Parker, Cornelio, DO, MPH 10/02/2018 M54.2 Cervicalgia Parker, Cornelio, DO, MPH 10/02/2018 M54.17 Radiculopathy, lumbosacral region Parker, Cornelio, DO, MPH 10/02/2018 R53.83 Other fatigue Parker, Cornelio, DO, MPH 10/02/2018 Z79.891 [facility] (current) use of opiate analgesic Parker, Cornelio [...] fatigue Parker, Cornelio, DO, MPH 08/29/2018 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 Parker, Cornelio , DO, MPH 08/01/2018 G89.29 Other chronic pain Parker, Cornelio, DO, MPH 08/01/2018 M15.0 Primary generalized (osteo)arthritis Parker, Cornelio, DO, MPH 08/01/2018 M54.5 Low back pain ParkerCornelio shelby DO, MPH 08/01/2018 M99.03 Segmental and somatic dysfunction of lumbar ParkerCornelio shelby DO, MPH region 08/01/2018 M54.2 Cervicalgia ParkerCornelio shelby DO, MPH 08/01/2018 M99.01 Segmental and somatic dysfunction of Cornelio Parker DO, MPH cervical region 08/01/2018 M54.6 Pain in thoracic spine Cornelio Parker DO, MPH 08/01/2018 M99.02 Segmental and somatic dysfunction of ParkerConcepcion shelbyph, DO, MPH thoracic region 08/01/2018 R53.83 Other fatigue Cornelio Parker DO, MPH 08/01/2018 Z79.891 [facility] (current) use of opiate analgesic Cornelio Parker DO, MPH 07/02/2018 G89.29 Other chronic pain Cornelio Parker DO, MPH 07/02/2018 M15.0 Primary generalized (osteo)arthritis Cornelio Parker DO, MPH 07/02/2018 M54.2 Cervicalgia Cornelio Parker DO, MPH 07/02/2018 M54.5 Low back pain ParkerCornelio shelby DO, MPH 07/02/2018 M65.88 Other synovitis and tenosynovitis, other Cornelio Parker DO , MPH site 07/02/2018 R53.83 Other fatigue Cornelio Parker DO, MPH 07/02/2018 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 Importance of regular nutrition throughout the day discussed.Activity as toleratedContinue with PCP Functional Status Description No Information Available Mental Status Description No Information Available Referrals Refer to Reason for Referral Status Appt Date Cornelio Parker D.O. MPH Created [address] [place] [address] [place] [id number] [phone]
--- OUTSIDE RECORDS SUMMARY | 2018-12-30 13:20 | XMS REPORT | Continuity of Care Document ---
:1970 External Reference #:[id number] Demographics Address [address] [place] [address] Home Phone [phone] Preferred Language en Marital Status Not or Scientologist Affiliation Unknown Race White Ethnic Group Not or Author Name Cornelio Parker DO, MPH Address [address] [place] [address], [address] [place] [address] Care Team Providers Name Role Phone Alida Salazar PA - Physician Care Team Information Stiff Neck Loader [phone] Coremaking Supervisor Problems Description No Information Available Social History Type Date Description Comments Sex Unknown Cigarette Use Current Cigarette Smoker 1 Pack Daily ETOH Use Currently consumes alcohol Tobacco Use Start: Unknown Patient is a current smoker, smokes every day Smoking Status Reviewed: 12/05/18 Patient is a current smoker, smokes every day Allergies, Adverse Reactions, Alerts Active Allergies Reaction Severity Comments Date Aspirin 02/13/2013 Codeine 02/13/2013 Medications Active Medications SIG Qnty Indications Ordering Date Provider Cristin sipo every 12 30caps Cornelio Parker, 11/23/2016 100mg Capsules hours as DO, MPH directed chronic pain patient Oxycodone HCL si by mouth 45tabs Cornelio Parker, 07/29/2013 5mg Tablets every 8 [...] Capsules DR every day Calcium 500+D Unknown [id number] Tablets Simvastatin take once during Unknown 40mg Tablets evevning Mobic si po qd ud 30tabs Unknown 7.5mg Tablets Vitamin B Complex qd Unknown Tablets Magnesium Oxide qd Unknown 400mg Tablets Sumatriptan Succinate si po q8h 15tabs Unknown 100mg onset headache Tablets Albuterol Inhalation 2 puff bid 1units Unknown 90mcg/Dose Aerosol Immunizations Description No Information Available Vital Signs Date Vital Result Comment 12/05/2018 10:39am BP Systolic 136 mmHg BP Diastolic 84 mmHg Heart Rate 82 /min Respiratory Rate 20 /min Height 57 inches 4'9" Weight 153.00 lb Pain Level 9 Pain at this time. Pain Level With Medicine 8 on average with meds Pain Level Without Medicine 10 01/29 without meds BMI (Body Mass Index) 33.1 kg/m2 11/05/2018 3:03pm BP Systolic 132 mmHg BP Diastolic 84 mmHg Heart Rate 86 /min Respiratory Rate 20 /min Height 57 inches 4'9" Weight 162.00 lb Pain Level 8 Pain at this time. Pain Level With Medicine 8 on average with meds Pain Level Without Medicine 9 without meds BMI (Body Mass Index) 35.1 kg/m2 Results Description No Information Available Procedures Date Code Description Status 10/02/2018 05129 Therapeutic, Prophylactic Or Diagnostic Injection Subq/Im Completed 08/29/2018 Inject Tendon/Ligament Completed 08/29/2018 Inject Tendon/Ligament Completed 08/29/201806352 Inject Tendon/Ligament Completed 08/29/201894493 Inject Tendon/Ligament Completed 08/29/2018 Injection, Tendon Origin/Insertion Completed 08/29/2018 Injection, Tendon Origin/Insertion Completed 08/29/2018 Injection, Single Or Mutiple Trigger Points One Or Two Completed Muscles 08/29/2018 53691 Injection For Nerve Block, Other Peripheral Nerve Or Completed Branch 08/29/2018 79540 Therapeutic, Prophylactic Or Diagnostic Injection Subq/Im Completed 08/01/2018 34362 Omt 3-4 Body Regions Completed 08/01/2018 28939 Therapeutic, Prophylactic Or Diagnostic Injection Subq/Im Completed 07/02/2018 87913 Therapeutic, Prophylactic Or Diagnostic Injection Subq/Im Completed 07/02/2018 39217 Brief Emotional/Behav Assessment W/ Scoring Doc Per Completed Standard Inst 07/02/2018 Inject Tendon/Ligament Completed 07/02/2018 Inject Tendon/Ligament Completed 07/02/201867518 Inject Tendon/Ligament Completed 07/02/201854997 Inject Tendon/Ligament Completed Medical Devices Description No Information Available Encounters Type Date Location Provider Dx Diagnosis Office Visit 11/05/2018 Main Office as Of Cornelio Parker DO G89.29 Other chronic pain 3:15p 05/23/13 MPH M15.0 Primary generalized (osteo)arthritis M54.2 Cervicalgia M54.17 Radiculopathy, lumbosacral region 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 Office Visit 10/02/2018 11:15a Main Office as Cornelio Parker G89.29 Other chronic Of 05/23/13 DO, MPH pain M15.0 Primary generalized (osteo)arthritis M54.5 Low back pain M54.2 Cervicalgia M54.17 Radiculopathy, lumbosacral region R53.83 Other fatigue 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 Office Visit 08/29/2018 11:30a Main Office as Cornelio Parker G89.29 Other chronic Of 05/23/13 DO, MPH pain M15.0 Primary generalized (osteo)arthritis M54.5 Low back pain M54.17 Radiculopathy, lumbosacral region M54.2 Cervicalgia M65.88 Other synovitis and tenosynovitis, other site M79.18 Myalgia, other site R53.83 Other fatigue Z79.891 group home (current) use of opiate analgesic Office Visit 08/01/2018 11:00a Main Office as Cornelio Parker G89.29 Other chronic Of 05/23/13 DO, MPH pain M15.0 Primary generalized (osteo)arthritis M54.5 Low back pain M99.03 Segmental and somatic dysfunction of lumbar region M54.2 Cervicalgia M99.01 Segmental and somatic dysfunction of cervical region M54.6 Pain in thoracic spine M99.02 Segmental and somatic dysfunction of thoracic region R53.83 Other fatigue 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 Office Visit 07/02/2018 11:00a Main Office as Cornelio Parker, G89.29 Other chronic Of 05/23/13 DO, MPH pain M15.0 Primary generalized (osteo)arthritis M54.2 Cervicalgia M54.5 Low back pain M65.88 Other synovitis and tenosynovitis, other site R53.83 Other fatigue 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 Z13.31 Encounter for screening for depression Assessments Date Code Description Provider 12/05/2018 G89.29 Other chronic pain Parker, Cornelio, DO, MPH 12/05/2018 M15.0 Primary generalized (osteo)arthritis Parker, Cornelio, DO, MPH 12/05/2018 M54.17 Radiculopathy, lumbosacral region Parker, Cornelio, DO, MPH 12/05/2018 M54.2 Cervicalgia Parker, Cornelio, DO, MPH 12/05/2018 Z79.891 group home (current) use of opiate analgesic Parker, Cornelio , DO, MPH 12/05/2018 R53.83 Other fatigue Parker, Cornelio, DO, MPH 11/05/2018 G89.29 Other chronic pain Parker, Cornelio, DO, MPH 11/05/2018 M15.0 Primary generalized (osteo)arthritis Parker, Cornelio, DO, MPH 11/05/2018 M54.2 Cervicalgia Parker, Cornelio, DO, MPH 11/05/2018 M54.17 Radiculopathy, lumbosacral region Parker, Cornelio, DO, MPH 11/05/2018 Z79.891 group home (current) use of opiate analgesic Parker, Cornelio , DO, MPH 10/02/2018 G89.29 Other chronic pain Parker, Cornelio, DO, MPH 10/02/2018 M15.0 Primary generalized (osteo)arthritis Parker, Cornelio, DO, MPH 10/02/2018 M54.5 Low back pain Parker, Cornelio, DO, MPH 10/02/2018 M54.2 Cervicalgia Parker, Cornelio, DO, MPH 10/02/2018 M54.17 Radiculopathy, lumbosacral region Parker, Cornelio, DO, MPH 10/02/2018 R53.83 Other fatigue Parker, Cornelio, DO, MPH 10/02/2018 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 Parker, Cornelio [...] fatigue Parker, Cornelio, DO, MPH 08/29/2018 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 Parker, Cornelio [...] 08/01/2018 M99.02 Segmental and somatic dysfunction of Cornelio Parker DO, MPH thoracic region 08/01/2018 R53.83 Other fatigue Cornelio Parker DO, MPH 08/01/2018 Z79.891 group home (current) use of opiate analgesic Cornelio Parker DO, MPH 07/02/2018 G89.29 Other chronic pain Cornelio Parker DO, MPH 07/02/2018 M15.0 Primary generalized (osteo)arthritis Cornelio Parker DO, MPH 07/02/2018 M54.2 Cervicalgia Cornelio Parker DO, MPH 07/02/2018 M54.5 Low back pain Cornelio Parker DO, MPH 07/02/2018 M65.88 Other synovitis and tenosynovitis, other Cornelio Parker DO , MPH site 07/02/2018 R53.83 Other fatigue Cornelio Parker DO, MPH 07/02/2018 Z79.891 group home (current) use of opiate analgesic Cornelio Parker DO, MPH 07/02/2018 Z13.31 Encounter for screening for depression Cornelio Parker DO, MPH Plan of Treatment Future Appointment(s):12/19/2018 3:00 pm - Cornelio Parker DO MPH at Main Office as Of 05/23/1408 10:15 am - Cornelio Parker DO MPH at Main Office as Of 05/23/1407 - Cornelio Parker DO, MPHG89.29 Other chronic painComments: Chronic. Symptoms and complaints discussed and reviewed today. No significant changes in physical findings. Continue current medical pain management.M15.0 Primary generalized (osteo)arthritisComments:Chronic. Symptoms and complaints discussed and reviewed today. No significant changes in physical findings. Continue current medical pain management.M54.17 Radiculopathy, lumbosacral regionComments:Chronic. Symptoms and complaints discussed and reviewed today. No changes in physical findings; patient is stable on current medical therapy.M54.2 CervicalgiaComments:Chronic. Symptoms and complaints discussed and reviewed today. No significant changes in physical findings. Continue current medical pain management.Z79.891 group home (current) use of opiate analgesicNew Labs:Urine Drug Screen, Ordered: 12/05/18Comments:Urine drug screen sample taken. Rapid Point of [...] controlled substances and is considered standard of care.R53.83 Other fatigueComments:Symptoms and complaints discussed and reviewed today. No significant changes in physical findings. Continue current medical pain management. B12 injection administered after patient evaluated. 1ml IM for fatigue. (See Consent for injection-B12 document for lot number and expiration date.)AllComments:Continue current medical pain management; injection therapy, osteopathic [...] while maintaining satisfactory side effect profile andminimizing mcfp end-organ damage. Importance of regular nutrition throughout the day discussed.Activity as toleratedContinue with PCP Functional Status Description No Information Available Mental Status Description No Information Available Referrals Refer to Reason for Referral Status Appt Date Cornelio Parker D.O. MPH Created [address] [place] [address] [address] [place] [address] [phone]
--- OUTSIDE RECORDS SUMMARY | 2018-12-30 13:20 | XMS REPORT | Continuity of Care Document ---
:1970 External Reference #:[id number] Author Name Shaina Barillas M.D. (transmitted by agent of provider Kalani Persaud) Address [address] [place] [address] [place] [address] Care Team Providers Name Role Phone Royce Pittman MD - Orthopaedic Care Team Information Security Escort Surgery Wendy Marie M.D. - Internal Care Team Information Security Escort [phone] Medicine Problems Active Problems Provider Date Convulsive [...] Carbonate-Vitamin D By Mouth Twice A Day [id number] Tablets Metformin HCL 1 tab by mouth 60tabs [facility], 500mg Tablets every day Joann Nguyen Duloxetine HCL 1 cap by mouth 90caps [facility], 60mg Caps DR every day Joann Nguyen Part Oxycodone HCL Take One Tablet Unknown 5mg Tablets By Mouth Every 8 Hours as Directed Maximum Daily Dose Three Tablets Cyclobenzaprine HCL 1 tab by mouth 30tabs [facility], 10mg three times a Joann Nguyen Tablets day as needed Lyrica Take One Capsule Unknown 100mg Capsules By Mouth Every 12 Hours as Directed Maximum Daily Dose 2 Omeprazole Take One Capsule Unknown 40mg Capsules DR By Mouth Every Day Incruse Ellipta inhale one puff [facility], 62.5mcg/Inh every day by Joann Nguyen Aerosol mouth Advair Diskus 1 puff bid Lyn Willams, WIRE STRAIGHTENER 250-50mcg/Dose Aerosol Albuterol Sulfate as needed Lyn Willams, WIRE STRAIGHTENER (2.5mg/3ML) 0.083% Nebulizer Quetiapine Fumarate one tablet every 30tabs [facility], 300mg night at bedtime Kristal, WIRE STRAIGHTENER Tablets Simvastatin 1 po qd [facility], 40mg Tablets Kristal, WIRE STRAIGHTENER Sumatriptan Succinate 1 tab at onset Petr Patel 100mg of migraine, may Barron, JONAS Tablets repeat in 2 hours as needed B Complex 1 po qd Petr Patel Capsules JTerrell, RPA Bupropion HCL ER (SR) tab by mouth 30tabs Patricia-Allen, 150mg twice a day Kristal, WIRE STRAIGHTENER Tablets ER 12HR Meloxicam 1 by mouth [...] Date Facility Test Result H/L Range Note Laboratory test 07/28/2018 [facility] Surgical SEE RESULT [address] [place] [address] [phone] Laboratory test 07/28/2018 [facility] Point of Care 128 mg/dL High 70-100 [address] [place] [address] [phone] 1 SEE RESULT BELOW Name: LALITHA GARCIA : [address]: Filiberto Davis MD Acct: [id number] Unit: [id number] AGE: 47 Location: OR Re07/28/18 SEX: F Status: [facility] [place] SPEC: [id number] CONSTANCE: 07/28/18- [facility] DR: Filiberto Davis MD REQ: [id number] RECD: 07/28/18 STATUS: SOUT _ ORDERED: LEVEL 3 FINAL DIAGNOSIS Soft tissue, left wrist, excision: -- Ganglion cyst. PRE-OPERATIVE DIAGNOSIS Left carpal tunnel and ganglion cyst GROSS DESCRIPTION The specimen is received in formalin labeled, Left Wrist Ganglion Cyst, and consists of two nelson-white to yellow irregular rubbery fibrous and adipose tissue fragments aggregating 2.8 x 1.4 x 0.3 cm. Bankruptcy Legal Assistant sections, one cassette. Signed by and Reported on: Chacorta Schuster MD 01/08 1243 END OF REPORT DEPARTMENT OF PATHOLOGY, [address] [place] [address] Chacorta Schuster M.D. Director [facility] # [id number] 2 Accountant Systems: [id number] Procedures Date Code Description Status 07/28/2018 62268 Endoscopy Wrist Surg W/Release Of Transverse Carpal Completed Ligament 07/28/2018 57566 Endoscopy Wrist Surg W/Release Of Transverse Carpal Completed Ligament 07/28/2018 35385 Excision Ganglion Wrist/ Dorsal Or Volar; Primary Completed 07/28/2018 93762 Excision Ganglion Wrist/ Dorsal Or Volar; Primary Completed 07/04/2018 84976 Rad Exam; Wrist, Comp, Min 3 Views Completed 07/03/2018 61132 Xray Knee 3 Views Completed Medical Devices Description No Information Available Encounters Type Date Location Provider Dx Diagnosis Office Visit 09/12/2018 Orthopedic Shaina Barillas, M25.561 Pain in right 2:45p Services Of [facility]errell David knee M25.461 Effusion, right knee M17.11 Unilateral primary osteoarthritis, right knee Office Visit 07/30/2018 11:00a Orthopedic Services Shaina Barillas, M25.561 Pain in right Of [facility] knee M17.11 Unilateral primary osteoarthritis, right knee M25.461 Effusion, right knee M25.361 Other instability, right knee Office Visit 07/04/2018 9:30a Orthopedic Filiberto G56.02 Carpal tunnel Services Of Shy Davis MD syndrome, left AT [place] upper limb M67.432 Ganglion, left wrist Office Visit 07/03/2018 Orthopedic Eran M M17.11 Unilateral primary 11:00a Services Of Shy Garcia MD osteoarthritis, right AT [place] knee M25.361 Other instability, right knee M25.561 Pain in right knee Assessments Date Code Description Provider 09/19/2018 G56.02 Carpal tunnel syndrome, left upper [...] Eran Garcia MD Plan of Treatment Future Appointment(s):12/30/2018 3:30 pm - DERREK Lloyd at [facility]12/30/2018 3:30 pm - Elier Mayers PA-C at [facility]12/30/2018 3:30 pm - Shaina Barillas M.D. at [facility] Functional Status Description No Information Available Mental Status Description No Information Available Referrals Description No Information Available
--- OUTSIDE RECORDS SUMMARY | 2018-12-30 13:20 | XMS REPORT | Continuity of Care Document ---
:1970 External Reference #:[id number] Author Name Shaina Barillas M.D. (transmitted by agent of provider David Bull) Address [address] [place] [address] [place] [address] Care Team Providers Name Role Phone Royce Pittman MD - Orthopaedic Care Team Information Cold Strip Roller [phone] Surgery Wendy Marie M.D. - Internal Care Team Information Cold Strip Roller Medicine Problems Active Problems Provider Date Convulsive [...] Carbonate-Vitamin D By Mouth Twice A Day [id number] Tablets Metformin HCL 1 tab by mouth 60tabs [facility], 500mg Tablets every day Joann Nguyen Duloxetine HCL 1 cap by mouth 90caps [facility], 60mg Caps DR every day Joann Nguyen Part Oxycodone HCL Take One Tablet Unknown 5mg Tablets By Mouth Every 8 Hours as Directed Maximum Daily Dose Three Tablets Cyclobenzaprine HCL 1 tab by mouth 30tabs [facility], 10mg three times a Joann Nguyen Tablets day as needed Lyrica Take One Capsule Unknown 100mg Capsules By Mouth Every 12 Hours as Directed Maximum Daily Dose 2 Omeprazole Take One Capsule Unknown 40mg Capsules DR By Mouth Every Day Incruse Ellipta inhale one puff [facility], 62.5mcg/Inh every day by Joann Nguyen Aerosol mouth Advair Diskus 1 puff bid Lyn Willams, WHEELCHAIR VAN OPERATOR FIRST RESPONDER 250-50mcg/Dose Aerosol Albuterol Sulfate as needed Lyn Willams, WHEELCHAIR VAN OPERATOR FIRST RESPONDER (2.5mg/3ML) 0.083% Nebulizer Quetiapine Fumarate one tablet every 30tabs [facility], 300mg night at bedtime Kristal, WHEELCHAIR VAN OPERATOR FIRST RESPONDER Tablets Simvastatin 1 po qd [facility], 40mg Tablets Kristal, WHEELCHAIR VAN OPERATOR FIRST RESPONDER Sumatriptan Succinate 1 tab at onset Petr Patel 100mg of migraine, may Barron, JONAS Tablets repeat in 2 hours as needed B Complex 1 po qd Petr Patel Capsules JTerrell, RPA Bupropion HCL ER (SR) tab by mouth 30tabs Patricia-Allen, 150mg twice a day Kristal, WHEELCHAIR VAN OPERATOR FIRST RESPONDER Tablets ER 12HR Meloxicam 1 by mouth [...] Test Result H/L Range Note Inr/Protime 12/24/2018 [facility] Inr 0.99 Normal 0.82-1.[address] [place] [address] [phone] Laboratory test 12/24/2018 [facility] Partial 33.4 seconds Normal 26.0-38.[address] [place] [address] PTT [phone] CBC Auto Diff 12/24/2018 [facility] White Blood 9.2 10^3/uL Normal 3.5-10.[address] [place] [address] [phone] Red Blood Count 4.24 10^6/uL Normal 3.70-4.87 [...] Blood Cells % 0.1 Comp Metabolic 12/24/2018 [facility] Sodium 136 mmol/L Normal 135-[address] [place] [address] [phone] Potassium 4.1 mmol/L Normal 3.5-5.0 Chloride 102 [...] 109.9 >60 2 Type & Screen 12/24/2018 [facility] Patient Blood Type O Negative [address] [place] [address] [phone] Antibody Screen NEGATIVE Laboratory test 07/28/2018 [facility] Surgical SEE RESULT [address] [place] [address] [phone] Laboratory test 07/28/2018 [facility] Point of Care 128 mg/dL High 70-[address] [place] 0 [place] [address] [phone] 1 Standard intensity warfarin therapeutic range: 2.0-3.0 [...] [address]: Filiberto Davis MD Acct: [id number] Unit: [id number] AGE: 47 Location: OR Re07/28/18 SEX: F Status: [facility] SPEC: [id number] CONSTANCE: 07/28/18- SUBM DR: Filiberto Davis MD REQ: [id number] RECD: 07/28/183 STATUS: SOUT _ ORDERED: LEVEL 3 FINAL DIAGNOSIS Soft tissue, left wrist, excision: -- Ganglion cyst. PRE-OPERATIVE DIAGNOSIS Left carpal tunnel and ganglion cyst GROSS DESCRIPTION The specimen is received in formalin labeled, Left Wrist Ganglion Cyst, and consists of two nelson-white to yellow irregular rubbery fibrous and adipose tissue fragments aggregating 2.8 x 1.4 x 0.3 cm. Service Now Developer sections, one cassette. Signed by and Reported on: Chacorta Schuster MD 01/08 1243 END OF REPORT DEPARTMENT OF PATHOLOGY, [address] [place] [address] Chacorta Schuster M.D. Director [facility] # [id number] 4 Payroll And Benefits Analyst: [id number] Procedures Date Code Description Status 07/28/2018 22860 Endoscopy Wrist Surg W/Release Of Transverse Carpal Completed Ligament 07/28/2018 03246 Endoscopy Wrist Surg W/Release Of Transverse Carpal Completed Ligament 07/28/2018 23402 Excision Ganglion Wrist/ Dorsal Or Volar; Primary Completed 07/28/2018 41730 Excision Ganglion Wrist/ Dorsal Or Volar; Primary Completed 07/04/2018 09139 Rad Exam; Wrist, Comp, Min 3 Views Completed 07/03/2018 76098 Xray Knee 3 Views Completed Medical Devices Description No Information Available Encounters Type Date Location Provider Dx Diagnosis Office Visit 09/12/2018 Orthopedic Shaina Barillas, M25.561 Pain in right 2:45p [facility] knee M25.461 Effusion, right knee M17.11 Unilateral primary osteoarthritis, right knee Office Visit 07/30/2018 11:00a Orthopedic Services Shaina Barillas M25.561 Pain in right Of [facility] knee M17.11 Unilateral primary osteoarthritis, right knee M25.461 Effusion, right knee M25.361 Other instability, right knee Office Visit 07/04/2018 9:30a Orthopedic Filiberto G56.02 Carpal tunnel Services Of Shy Davis MD syndrome, left AT [place] upper limb M67.432 Ganglion, left wrist Office Visit 07/03/2018 Orthopedic Eran Sequeira M17.11 Unilateral primary 11:00a Services Of Shy Garcia MD osteoarthritis, right AT [place] knee M25.361 Other instability, right knee M25.561 [...] Shaina Barillas M.D. at [facility].12/30/2018 4:30 pm - DERREK Lloyd at [facility] Of ..A.12/30/2018 4:30 pm - Elier Mayers PA-C at [facility]12/30/2018 4:30 pm - Shaina Barillas M.D. at [facility]. Functional Status Description No Information Available Mental Status Description No Information Available Referrals Description No Information Available
[2018-12-30] MEDS ORDERED: Dexamethasone IV* 4 MG/ML 1 ML (4 MG) ONE (13:51)
[2018-12-30] MEDS ORDERED: ceFAZolin 2 GM in NS PREMIX(*) 2 GM/100 ML BAG IVPB ONE (13:52)
[2018-12-30] MEDS ORDERED: Buffered Lidocaine 1% SYRIN* 1 ML/SYRINGE INTRADERM ONE (13:52)
[2018-12-30] MEDS ORDERED: ROPIVACAINE 5 MG/ML 30 ML BTL (0.5%) ONE ×2 (14:29→14:43)
[2018-12-30] MEDS ORDERED: Midazolam* 1 MG/ML 5 ML VIAL (5 MG) ONE (14:47)
[2018-12-30] MEDS ORDERED: KETAMINE HCL* 50 MG/ML 10 ML VIAL ONE (14:47)
[2018-12-30] MEDS ORDERED: fentaNYL* 50 MCG/ML 5 ML VIAL (250 MCG VIAL) ONE (14:47)
[2018-12-30] MEDS ORDERED: Propofol* 10 MG/ML 20 ML BTL ONE (14:47)
[2018-12-30] MEDS ORDERED: Ondansetron INJ* 2 MG/ML VIAL ONE (14:47)
[2018-12-30] MEDS ORDERED: Rocuronium* 10 MG/ML VIAL ONE (14:48)
[2018-12-30] MEDS ORDERED: Sugammadex * 200 MG/2 ML VIAL IV PUSH ONE (14:50)
[2018-12-30] MEDS ORDERED: EPHEDrine (Pressors)* 50 MG/ML VIAL ONE (15:11)
[2018-12-30] MEDS ORDERED: Lidocaine 0.5%* 50 ML SDV ONE (16:14)
[2018-12-30] MEDS ORDERED: fentaNYL* 50 MCG/ML 2 ML VIAL (100 MCG VIAL) ONE ×3 (16:28→18:58)
[2018-12-30] MEDS ORDERED: Metoprolol Tartrate IV* 1 MG/ML 5 ML VIAL ONE (17:46)
[2018-12-30] MEDS ORDERED: diPHENhydraMINE IV* 50 MG/ML 1 ml VIAL (BENADRYL) IV PRN (18:29)
[2018-12-30] MEDS ORDERED: oxyCODONE/Acetamin 5/325 MG* TAB PO PRN (18:29)
[2018-12-30] MEDS ORDERED: Morphine INJ* 2 MG/ML 1 ML SYRINGE (TWO MG - NEW SYRINGE VERSION) IV PRN (18:29)
[2018-12-30] MEDS ORDERED: Cyclobenzaprine TAB* 10 MG PO PRN (18:29)
[2018-12-30] MEDS ORDERED: diPHENhydraMINE PO* 25 MG PO PRN (18:29)
[2018-12-30] MEDS ORDERED: Ondansetron INJ* 2 MG/ML VIAL IV PRN ×2 (18:29→18:35)
[2018-12-30] MEDS ORDERED: Ondansetron ODT TAB* 4 MG PO PRN (18:29)
[2018-12-30] MEDS ORDERED: Magnesium Hydroxide LIQ* 30 ML UDC PO PRN (18:29)
[2018-12-30] MEDS: fentaNYL* 50 MCG/ML 2 ML VIAL (100 MCG VIAL) IV PRN ×2 (18:32→18:47)
[2018-12-30] MEDS ORDERED: HYDROmorphone INJ1* 1 MG/ML SYRINGE IV PRN (18:35)
[2018-12-30] MEDS ORDERED: DiMENhydriNATE IV* 50 MG/ML VIAL IV PUSH PRN (18:35)
[2018-12-30] MEDS ORDERED: Naloxone* 0.4 MG/ML 1 ML VIAL IV PRN (18:35)
[2018-12-30] MEDS ORDERED: Scopolamine 1.5 mg* PATCH TRANSDERM PRN (18:35)
[2018-12-30] MEDS ORDERED: Albuterol HFA INHALER* 8 gm MDI INH PRN (18:38)
[2018-12-30] MEDS ORDERED: Albuterol 2.5 MG/3 ML NEB.SOL* (0.083%) INH PRN (18:38)
[2018-12-30] MEDS ORDERED: Dextrose 50% VIAL 50 ml IV PUSH PRN (18:43)
[2018-12-30] MEDS: Lactated Ringers 1000 ML Bag* 1,000 ML IV SCH (20:31)
[2018-12-30] MEDS ORDERED: QUEtiapine TAB* 300 MG PO SCH (21:00)
--- NOTE | 2018-12-30 21:44 | OP ---
Operative Report - Blank - Operative Report Date of Operation: 12/30/18 Note: SERA MESSINA 1970 Date of Surgery: 12/30/18 Shaina Barillas MD Stagecraft Teacher: Jennifer INIGUEZ did help throughout the procedure with preparation of the knee, wound retraction, manipulation of the knee, and wound closure. Anesthesiologist: Jennifer Goodrich MD Anesthesia Type: General Preoperative Diagnosis: Right severe degenerative osteoarthritis of the knee with ligament laxity and congenital bone deformity Postoperative Diagnosis: As above Procedure Performed: Right Total Knee Arthroplasty with modifier for increased complexity of case adding operative time Tourniquet time: 72 minutes Complications: None Specimen: Bone and cartilage from the right knee joint sent to pathology. Hardware Used: Cemented Gilmore [employer] Nephew total knee hardware was used - For the femur a size 2 right oxinium legion posterior stabilized femoral component, for the tibia a size 1 right andres II tibial baseplate, for the insert a size 11 mm 1-2 contrained posterior stabilized articular polyethylene insert, and for the patella a size 26 3-peg all poly patella. Brief History/Indication: SERA MESSINA was known in clinic and had a history of severe right knee pain and swelling. She had remarkable ligament laxity and instability of her knee. She failed conservative treatment with anti -inflammatories, pain pills, intra-articular injections and physical therapy. She elected to undergo right total knee arthroplasty due to continued pain and decreased quality of life. Radiographs showed severe end stage osteoarthritis of the knee with bone on bone contact, as well as anatomic abnormalites of the bone. Informed consent was obtained from the patient. She understood the risks of surgery included but were not limited to: bleeding, infection, damage to nearby structures, intraoperative fracture, nerve palsy, failure of the hardware, early loosening, knee stiffness or loss of motion, anesthesia complications, stroke, heart attack, blood clot and . She wished to proceed. The patient was made aware that her congenital bone defects and ligamentous laxity put her at risk of intraoperative fracture and early implant loosening. She understood if I could not obtain a stable knee with primary implants she could possible need a hinge implant with stems. She agreed and wished to proceed despite the risks. Intra-Operative Findings: Intraoperatively the patient was noted to have severe loss of cartilage in all 3 compartments of the knee. She had a deformed, small distal femur and proximal tibia. She had MCL/LCL laxity but these ligaments were intact. She had no visible ACL or PCL. Description of the Procedure: SERA MESSINA was identified in the preanesthesia unit. Her right knee was marked as the correct operative side. Informed consent was signed and placed in the chart. The patient was taken to the operating room and placed under anesthesia without complication. A yost catheter was placed. A tourniquet was placed on the right thigh. The right lower extremity was prepped and draped in the usual sterile fashion. Preoperative time-out was made to correctly identify the patient, side and site. Appropriate intraoperative antibiotics were given within one hour of incision. Tourniquet was inflated. A midline incision was made and carried sharply down to the extensor mechanism. A new 10 blade was used to make a standard medial parapatellar arthrotomy. The patella was subluxed laterally. Electrocautery was used to dissect soft tissue off the superomedial tibia to the midsagittal plane. The knee was flexed up. The anterior horn of the lateral meniscus and the ACL were sharply incised. A drill was used to enter the distal femur. The intramedullary distal femoral cutting guide was pinned on the distal femur. The oscillating saw was used to make the distal femoral cut. The external rotation guide was pinned on the distal femur and the distal femur was sized to a size 2. The size 2 multi-cutting jig was pinned on the distal femur. The oscillating saw was used to make the appropriate 4 chamfer cuts. There was minimal pcl to release and no visible acl. The extramedullary tibial cutting guide was pinned on the proximal tibia and the oscillating saw was used to make the proximal tibial cut perpendicular to the mechanical axis of the tibia. The bone was carefully removed. The bone cuts and planning were much more complex due to her congenital bone abnormalities. At least 30 minutes of extra time was given to planning the appropriate cuts. The knee was brought out into full extension. The spacer block was placed and had excellent fit with the knee in full extension. The medial and lateral ligaments were well balanced. The flexion and extension gaps were well balanced. The knee was flexed up. Lamina body designer was placed both medially and laterally. Any remaining meniscus was removed with electrocautery. Curved osteotome was used to remove any posterior osteophytes. The tibial tray and drop gus were placed and confirmed a satisfactory tibial cut. The size 2 right femoral trial was impacted onto the distal femur. This trial had excellent fit and stability. The box for the posterior stabilized implant was prepared using a box cut osteotome and a reamer. Next a tibial tray trial and 11 mm insert trial was placed. The knee was taken through a range of motion and had full extension to 120 degrees of flexion. Patellofemoral tracking was satisfactory. The medial and lateral ligamentous stability was deemed to be satisfactory. Decision was made to proceed with the primary total knee implants. A C-arm was used to ensure the implants had satisfactory position without any periprosthetic fractures. This was confirmed. The patella was inverted and sized to a size 26. Three peg holes were drilled through the size 26 drill guide. The trial patella was placed and the knee was taken through a range of motion. There was satisfactory patellofemoral tracking. All trials were removed. The tibia was subluxed anteriorly and sized to a size 1. The proximal tibial was prepared with a size 1 keel punch. All bony cut surfaces were irrigated with sterile saline and dried. Final implants were cemented into place starting with the tibia, followed by the femur, and last the patella. A 11 mm insert trial was placed and the knee was brought into full extension. Tourniquet was turned down and the knee was copiously irrigated with sterile saline. Electrocautery was used to obtain meticulous hemostasis. Once the cement had fully cured, the insert trial was removed. Any excess cement was removed from around the hardware and capsule. Final insert chosen was a 11 mm constrained posterior stabilized Andres II articular insert size 1-2. Stability of the insert was checked and noted to be stable. The extensor mechanism was closed using number 1 vicryls. The rest of the incision was closed in a layered fashion using 0 and 2-0 vicryls. The skin was closed using 3-0 nylon suture. Sterile xeroform, 4x4s and webril were used to cover the incision. Rey wrap and cold pack were used to cover the dressings. The patients anesthesia was reversed without difficulty. She was taken to the PACU in stable condition. Intended weight-bearing will be as tolerated.
[2018-12-30] MEDS: oxyCODONE/Acetamin 5/325 MG* TAB PO PRN (22:11)
[2018-12-30] MEDS: BuPROPion XL* 150 MG TAB.XL PO SCH (22:12)
[2018-12-30] MEDS: Pregabalin CAP(*) 100 MG PO SCH (22:12)
[2018-12-30] MEDS: Magnesium Hydroxide LIQ* 30 ML UDC PO SCH (22:13)
[2018-12-30] MEDS: Docusate CAP* 100 MG PO SCH (22:13)
[2018-12-30] MEDS: Insulin LISPRO* 1 UNITS UNIT SUBCUT SCH (22:14)
[2018-12-30] MEDS: Acetaminophen TAB* 325 MG PO SCH (22:15)
[2018-12-30] MEDS: Mometasone/Formoter 200/5 MDI INH SCH (22:17)
--- NOTE | 2018-12-30 23:01 | CONS ---
HOSPITAL MEDICINE CONSULTATION REPORT: DATE OF CONSULT: 12/30/18 PROVIDER: Rebeca Lawton NP ATTENDING PHYSICIAN WHILE IN THE HOSPITAL: Dr. Shaina Barillas. CONSULTING PHYSICIAN: Dr. Rianna Funes (dictated by Rebeca Lawton NP). REASON FOR CONSULT: Co-management of chronic medical conditions. HISTORY OF PRESENT ILLNESS: Ms. Garcia is a 48-year-old female with a past medical history significant for osteoarthritis, type 2 diabetes, emphysema , insomnia, hyperlipidemia, hypertension, depression, chronic back pain with radiculopathy, fibromyalgia, acid reflux, migraines, COPD, seizures and anxiety , who presented to the [facility] for an elective right total knee arthroplasty with Dr. Barillas. Please see full dictated H and P from HIRA Cronin, for complete details. In brief, the patient had ongoing pain, failed conservative measures, therefore opted for an elective right total knee arthroplasty with Dr. Barillas. In the immediate postoperative period, the patient had complaints of mild right knee pain. She denies any recent illnesses. Denies any fever, chills, nausea, vomiting, or diarrhea. Denies any chest pain or edema. Denies any cough, hemoptysis, or shortness of breath. No nausea, vomiting, diarrhea or abdominal pain, gross hematuria, dysuria. Denies any focal weakness, sensory loss, visual complaints, dysphagia, arthralgias, myalgias, rashes, lesions or open sores. Denies any psychosis or anxiety. Due to her chronic medical conditions, Hospital Medicine was asked to consult and make recommendations. PAST MEDICAL HISTORY: Significant for: 1. Carpal tunnel. 2. Osteoarthritis. 3. Diabetes. 4. Emphysema. 5. Insomnia. 6. Hyperlipidemia. 7. Hypertension. 8. Depression. 9. Vitamin D deficiency. 10. Chronic back pain. 11. Radiculopathy. 12. Fibromyalgia. 13. GERD. 14. History of alcohol misuse. 15. Migraines. 16. Seizures. 17. Anxiety. 18. COPD. PAST SURGICAL HISTORY: 1. Tubal ligation 2. Left foot surgery. 3. Multiple clubfoot surgeries. 4. Carpal tunnel, bilaterally, release. 5. Breast lumpectomy. HOME MEDICATIONS: Include: 1. Metformin 500 mg p.o. q.p.m. 2. Bupropion 150 mg p.o. b.i.d. 3. Vitamin B complex 1 tablet q.a.m. 4. Chantix 0.5 mg p.o. q.a.m. 5. Incruse Ellipta 62.5 q.a.m. 6. Sumatriptan 100 mg p.o. daily p.r.n. 7. Simvastatin 40 mg p.o. q.a.m. 8. Seroquel 300 mg p.o. at bedtime. 9. Lyrica 100 mg p.o. b.i.d. 10. Oxycodone 5 mg p.o. t.i.d. 11. Omeprazole 40 mg p.o. q.a.m. 12. Naproxen 220 mg p.o. b.i.d. 13. Meloxicam 50 mg p.o. q.a.m. 14. Advair 1 puff b.i.d. 15. Duloxetine 60 mg p.o. q.p.m. 16. Flexeril 10 mg p.o. t.i.d. 17. Calcium plus vitamin D 1 tablet p.o. b.i.d. 18. Albuterol 108 mcg p.o. daily p.r.n. 19. Albuterol nebulizer as needed for shortness of breath. ALLERGIES: She has allergy to ASPIRIN and CODEINE. FAMILY HISTORY: No reported history of coronary artery disease or diabetes. Sister with breast cancer. SOCIAL HISTORY: The patient currently smokes 7 cigarettes per day. She has smoked since the age of 10 up to a pack a day for the past 38 years. Does report occasional alcohol use. Denies any illicit drug use. Surrogate decision -maker in the event she is unable to make her own decisions is her daughter. She is a full code. REVIEW OF SYSTEMS: An 11-point review of systems was completed. All pertinent positives were mentioned in the HPI, otherwise were negative. PHYSICAL EXAM: General: At this time, Ms. Garcia is alert, oriented, resting on the stretcher in PACU. She is in no acute distress. Vital Signs: Blood pressure 146/78, heart rate 88, respirations are 18, O2 saturation is 95% , temperature was 97.7. HEENT: Head is atraumatic, normocephalic. Eyes: EOMs are intact. Sclerae anicteric and not pale. Oral mucosa appeared to be moist. Neck is supple. Lungs are clear to auscultation bilaterally with a few expiratory scattered wheezes. Cardiac: S1, S2. Regular rate and rhythm. No murmurs, rubs, or gallops. Abdomen is soft and nontender. Bowel sounds are present x4. Extremities: She is able to move all 4 extremities. Sensation is intact. Pedal pulses are +2 bilaterally. There is no clubbing or cyanosis. She does have a dressing that is dry and intact to her right knee. Neurologic: She is awake, alert, and oriented x3. Speech is clear. Thought process is intact. There are no gross focal deficits. Skin: She does have a dressing dry and intact to the right knee. DIAGNOSTIC STUDIES/LAB DATA: CBC from 12/24/18: WBCs are 9.2, RBCs 4.24, hemoglobin 12.0, hematocrit 37, platelet count 301. INR was 0.99. APTT was 33.4. Sodium was 136, potassium 4.1, chloride 102, carbon dioxide 27, anion gap was 7, BUN was 7, creatinine 0.69. Glucose was 110, calcium 9.2, total bilirubin was 0.30, ASTs were 44, ALTs were 20, alkaline phosphatase was 102. Total protein was 6.5. IMPRESSION AND PLAN: Ms. Garcia is a 48-year-old female with a past medical history of type 2 diabetes, emphysema, insomnia, hyperlipidemia, depression, hypertension, chronic back pain, fibromyalgia, gastroesophageal reflux disease, migraine, chronic obstructive pulmonary disease, anxiety and seizures, who presented to [facility] for elective right total knee arthroplasty. Hospital Medicine was asked to consult due to her chronic medical conditions. Our recommendations are as follows. 1. Status post right total knee arthroplasty. PT and OT per Orthopedics; bowel regimen per Orthopedics; pain management per Orthopedics, care of right total knee arthroplasty per Orthopedics. 2. Hypertension. We will continue to monitor as the patient is not currently on any antihypertensive medications. 3. Depression. She should continue on her home medications of bupropion and Seroquel as previously prescribed. 4. Chronic obstructive pulmonary disease. She should continue on Advair and Incruse Ellipta as previously prescribed. She can add albuterol nebs as needed for shortness of breath and wheezing. 5. Type [address] her on a lispro sliding scale with fingersticks a.c. and h.s. 6. Hyperlipidemia. She should continue on her simvastatin as previously prescribed. 7. FEN. She can have consistent carb diet. 8. Code status. She is a full code. 9. DVT prophylaxis. As per Orthopedics. TIME SPENT: Time spent on this consultation was 45 minutes, greater than half the time was spent at the bedside reviewing events leading thus far to her hospitalization, performing physical exam, and reviewing my plan of care. I have discussed this with my attending, Dr. Rianna Funes, and she is in agreement with my plan. REBECA LAWTON, PEEWEE [id number]/CPS #: [id number] MTDKait
[2018-12-30] MEDS: ceFAZolin 1 GM ADVAN(*) 1 GM in NS 0.9% 50 ML* 50 ML IVPB SCH (23:58)
[2018-12-30] MEDS: oxyCODONE TAB* 5 MG TAB PO PRN (23:58)
[2018-12-31] MEDS: oxyCODONE/Acetamin 5/325 MG* TAB PO PRN ×3 (02:08→11:56)
[2018-12-31 05:44] LABS: Hematocrit 32 % (35-47); Hemoglobin 10.7 g/dL (12.0-16.0); Mean Platelet Volume 6.5 fL (7.4-10.4); Platelet Count 270 10^3/uL (150-450)
[2018-12-31] MEDS: oxyCODONE TAB* 5 MG TAB PO PRN ×2 (05:52→14:22)
[2018-12-31 06:15] LABS: Calcium 8.8 mg/dL (8.6-10.3); EGFR African American 129.1 (>60); EGFR Non-African American 106.7 (>60); Potassium 4.3 mmol/L (3.5-5.0)
[2018-12-31] MEDS: Acetaminophen TAB* 325 MG PO SCH ×2 (06:25→14:11)
[2018-12-31] MEDS: Lactated Ringers 1000 ML Bag* 1,000 ML IV SCH (07:29)
[2018-12-31] MEDS: ceFAZolin 1 GM ADVAN(*) 1 GM in NS 0.9% 50 ML* 50 ML IVPB SCH ×2 (07:29→15:23)
[2018-12-31] MEDS: Insulin LISPRO* 1 UNITS UNIT SUBCUT SCH ×2 (07:51→12:19)
[2018-12-31] MEDS: Mometasone/Formoter 200/5 MDI INH SCH (08:22)
[2018-12-31] MEDS ORDERED: Vitamin THERAPEUTIC TAB PO SCH (09:00)
[2018-12-31] MEDS ORDERED: Apixaban* 2.5 MG TAB PO SCH (09:00)
[2018-12-31] MEDS ORDERED: SUMAtriptan TAB* 100 MG PO PRN (09:00)
[2018-12-31] MEDS ORDERED: Atorvastatin* 20 MG TAB PO SCH (09:00)
[2018-12-31] MEDS ORDERED: CMCS:Varenicline (NF) 1 MG TAB PO SCH (09:00)
[2018-12-31] MEDS ORDERED: Pantoprazole TAB * 40 MG TAB PO SCH (09:00)
[2018-12-31] MEDS ORDERED: SPIRIVA Respimat* (tiotropium) 2.5 mcg/inh Inhaler INH SCH (09:00)
[2018-12-31] MEDS: Magnesium Hydroxide LIQ* 30 ML UDC PO SCH (09:29)
[2018-12-31] MEDS: BuPROPion XL* 150 MG TAB.XL PO SCH (09:29)
[2018-12-31] MEDS: Docusate CAP* 100 MG PO SCH (09:29)
[2018-12-31] MEDS: Pregabalin CAP(*) 100 MG PO SCH (09:30)
--- NOTE | 2018-12-31 14:12 | PN ---
Progress Note - Progress Note Date of Service: 12/31/18 SOAP: Subjective: []Pt seen at bedside. She feels well without complaints. Denies CP, SOB, dizziness, nausea. Objective: []Gen: Appears well, NAD RLE: Right knee dressing CDI, thigh soft, DF/PF intact, DP2+, sensation intact to light touch distally Calves supple and nontender without erythema, edema or palpable cords Assessment: []POD 1 sp RTK Plan: []WBAT PT.OT eliquis 2.5 mg po BID x 30 days post op Desires DC home today, will eval after PT this afternoon to determine if ready Vital Signs Temp 97.5 F 12/31/18 11:31 Pulse 81 12/31/18 11:31 Resp 18 12/31/18 11:58 BP 105/52 12/31/18 11:31 Pulse Ox 94 12/31/18 11:31 Intake & Output 12/30/18 12/31/18 12/31/18 18:59 06:59 18:59 Intake Total 1999 950 1631 Output Total 1450 925 Balance 1999 -500 706 Weight 155 lb 9.6 oz Intake: IV Fluids 1999 991 LR 1999 991 IVPB 110 ABX - CEFAZOLIN 110 Oral 840 640 Output: Urine 925 [place] 1450 Laboratory Last Values Hgb 10.7 g/dL (12.0-16.0) L 12/31/18 05:29 Hct 32 % (35-47) L 12/31/18 05:29 Plt Count 270 10^3/uL (150-450) 12/31/18 05:29 MPV 6.5 fL (7.4-10.4) L 12/31/18 05:29 Sodium 134 mmol/L (135-145) L 12/31/18 05:29 Potassium 4.3 mmol/L (3.5-5.0) 12/31/18 05:29 Chloride 101 mmol/L (101-111) 12/31/18 05:29 Carbon Dioxide 28 mmol/L (22-32) 12/31/18 05:29 Anion Gap 5 mmol/L (2-11) 12/31/18 05:29 BUN 6 mg/dL (6-24) 12/31/18 05:29 Creatinine 0.60 mg/dL (0.51-0.95) 12/31/18 05:29 Est GFR ( Amer) 129.1 (>60) 12/31/18 05:29 Est GFR (Non-Af Amer) 106.7 (>60) 12/31/18 05:29 BUN/Creatinine Ratio 10.0 (8-20) 12/31/18 05:29 Glucose 149 mg/dL (70-100) H 12/31/18 05:29 POC Glucose (mg/dL) 111 mg/dL (70-100) H 12/31/18 11:57 Calcium 8.8 mg/dL (8.6-10.3) 12/31/18 05:29
--- NOTE | 2018-12-31 14:37 | DS ---
Orthopedic Discharge Summary - Discharge Summary Date of Service: 12/31/18 Date of Admission:12/30/18 Date of Discharge: 12/31/18 Date of Surgery: 12/30/18 Attending Orthopedic Provider: Dr. Barillas Pre-operative Diagnosis: Right knee OA Operative Procedure: Right total knee replacement Disposition of Patient: Home with VNS Condition of Patient: Stable History: SERA MESSINA is a 48 year old F with years of increasingly severe right knee pain. Patient has failed conservative management and has elected to undergo a right total knee replacement Hospital Course: SERA was admitted to [facility] on 12/30/18. Patient underwent a right total knee replacement without complication followed by a brief recovery in PACU and transfer to the Short Stay Surgical Unit in stable condition. Our hospitalist service, physical therapy and occupational therapy also participated in this patients care. Post-op day 1: patient was alert and in no acute distress. Dressing was clean, dry and intact. Operative extremity dorsiflexion and plantarflexion intact, sensation intact to light touch distally, DP2+. Post-op day two: dressing was changed, incision was clean , dry and intact. Patient was deemed to be medically and orthopedically stable for discharge. Physical therapy goals were met. Home Medications Medication Instructions Recorded Confirmed Type Albuterol 0.5% CONC NEB.TRISTA* 1 mg .SEE ORDER DAILY PRN 07/21/18 12/30/18 History Albuterol inh POWDER (NF) [Proair 108 mcg INH DAILY PRN 07/21/18 12/30/18 History Respiclick] Calcium Carbonate/Vitamin D3 1 tab PO BID 07/21/18 12/30/18 History [Calcium 600-Vit D3 400 Caplet] Cyclobenzaprine TAB* [Flexeril 10 10 mg PO TID 07/21/18 12/30/18 History MG TAB*] Fluticasone-Salmeterol 250-50* 1 puff INH BID 07/21/18 12/30/18 History [Advair Diskus 250-50*] Meloxicam [Mobic] 15 mg PO QAM 07/21/18 12/30/18 History Pregabalin [Lyrica] 100 mg PO BID 07/21/18 12/30/18 History QUEtiapine TAB* [Seroquel 300 MG 300 mg PO BEDTIME 07/21/18 12/30/18 History TAB*] Simvastatin [Zocor] 40 mg PO QAM 07/21/18 12/30/18 History Umeclidinium [place] [Incruse 62.5 mcg INH QAM 07/21/18 12/30/18 History Ellipta] Varenicline (NF) [Chantix 1 MG TAB 0.5 mg PO QAM 07/21/18 12/30/18 History (NF)] Vitamin B Complex [Super B-50 1 each PO QAM 07/21/18 12/30/18 History Complex] buPROPion HCl [Bupropion Xl] 150 mg PO BID 07/21/18 12/30/18 History metFORMIN* [Glucophage 500 MG TAB 500 mg PO QPM 07/21/18 12/30/18 History *] Duloxetine HCl 60 mg PO QPM 07/28/18 12/30/18 History SUMAtriptan 100 mg PO DAILY 07/28/18 12/30/18 History Naproxen Sodium [Aleve] 220 mg PO BID 12/24/18 12/30/18 History Omeprazole 40 mg PO QAM 12/24/18 12/30/18 History Apixaban* [Eliquis*] 2.5 mg PO BID tab 12/31/18 Rx Docusate CAP* [Colace Cap*] 100 mg PO BID cap 12/31/18 Rx oxyCODONE/Acetamin 5/325 MG* 1 tab PO Q4H PRN tab 12/31/18 Rx [Percocet 5/325 TAB*] oxyCODONE/Acetamin 5/325 MG* 2 tab PO Q4H PRN tab 12/31/18 Rx [Percocet 5/325 TAB*] DISCHARGE INSTRUCTIONS: Weight Bearing as tolerated Wound Care: OK to shower on post-op day 3, no bathing/ swimming/ submerging wound. Use gentle soap, pat dry. Cover with gauze, FARZAD wrap or tape. Call Orthopedic office for increased drainage, redness, increased pain, or fever. Go to ER with shortness of breath or chest pain. Diet: Regular diet, increase fluids and fiber to prevent constipation. Continue to use stool softeners, call office if no bowel motion within 48 hours. Colace 100 mg take 1 tab three times a day as needed for constipation - Continue physical therapy and occupational therapy exercises as shown. - Visiting home nurse to do wound checks. DVT Prophylaxis: - Eliquis- 2.5mg twice daily x 1 month Do NOT take naproxen or meloxicam while on Eliquis - Pain control with: Percocet 5/325 mg 1-2 tabs by mouth every 4-6 hours as needed for pain. Maximum of 10 tabs per day Please note that percocet contains tylenol (acetaminophen). Maximum daily dose of tylenol is 4000 mg from all sources. - Antibiotics required prior to any dental work. FOLLOW UP: Follow up with Dr. Barillas Within 10-14 days, call for appointment Please call our office with any questions or concerns ([phone]) medications sent to [facility] [place] [place] [facility]
[2018-12-31 15:29] VITALS: BP 116/65
[2018-12-31] MEDS ORDERED: DULoxetine DR CAP* 60 MG CAP.DR PO SCH (18:00)
[2019-01-01] MEDS ORDERED: Bisacodyl SUPP* 10 MG SUPP PR PRN (18:29)
== END 2018-12-31 17:20 | disposition home health service (06) | DRG 302 ==
LOC: AA 12-30 13:16 → SSU 12-30 19:58
PROVIDERS: ADMIT Orthopaedic Surgery Adult Reconstructive Orthopaedic Surgery; ATTEND Orthopaedic Surgery Adult Reconstructive Orthopaedic Surgery
PROC: 0SRC069 Replacement of Right Knee Joint with Oxidized Zirconium on Polyethylene Synthetic Substitute, Cemented, Open Approach (ICD-10-PCS; principal; 2018-12-30 16:00)
DX: M17.11 Unilateral primary osteoarthritis, right knee (principal); E11.9 Type 2 diabetes mellitus without complications; E78.5 Hyperlipidemia, unspecified; I10 Essential (primary) hypertension; F32.9 Major depressive disorder, single episode, unspecified; F17.210 Nicotine dependence, cigarettes, uncomplicated; E66.9 Obesity, unspecified; K21.9 Gastro-esophageal reflux disease without esophagitis; M23.8X1 Other internal derangements of right knee; M25.761 Osteophyte, right knee; F10.21 Alcohol dependence, in remission; G43.909 Migraine, unspecified, not intractable, without status migrainosus; G89.29 Other chronic pain; M79.7 Fibromyalgia; G40.909 Epilepsy, unspecified, not intractable, without status epilepticus; F41.9 Anxiety disorder, unspecified; M54.16 Radiculopathy, lumbar region; J43.1 Panlobular emphysema; M54.9 Dorsalgia, unspecified; E55.9 Vitamin D deficiency, unspecified; Z98.51 Tubal ligation status; Z88.5 Allergy status to narcotic agent; Z88.6 Allergy status to analgesic agent; Z80.3 Family history of malignant neoplasm of breast; Z72.89 Other problems related to lifestyle; Z68.35 Body mass index [BMI] 35.0-35.9, adult; Z79.84 Long term (current) use of oral hypoglycemic drugs; Q74.1 Congenital malformation of knee; Z81.3 Family history of other psychoactive substance abuse and dependence
CPT/HCPCS: 36415; 76000; 80048; 85014; 85018; 85049; 88305; 88311; 94640; A9270-GY; C1776; J0690; J1100; J2250; J2270; J2405; J2704; J2795; J3010; J3490; J3535

== ENCOUNTER 2021-03-18 19:15 | Inpatient (IN) ==
[2021-03-18 20:33] LABS: Hematocrit 30 % (35-47); Hemoglobin 10.4 g/dL (12.0-16.0); Mean Corpuscular HGB Conc 35 g/dL (31-36); Mean Corpuscular Hemoglobin 32 pg (27-31); Mean Corpuscular Volume 91 fL (80-97); Mean Platelet Volume 7.9 fL (7.4-10.4); Platelet Count 124 10^3/uL (150-450); Red Blood Count 3.28 10^6 /uL (3.70-4.87); Red Cell Distribution Width 15 % (10-15); White Blood Count 11.6 10^3/uL (3.5-10.8)
[2021-03-18 20:43] LABS: PCO2 Arterial 36 mmHg (35-45); PO2 Arterial 73 mmHg (80-100)
[2021-03-18 20:47] LABS: ABS Lymphocytes 0.4 10^3/ul (1.0-4.8); ABS Monocytes 0.5 10^3/ul (0-0.8); ABS Neutrophils 10.2 10^3/ul (1.5-7.7); Eosinophil % 0.4 %; Lymphocyte % 3.4 %
[2021-03-18 20:49] LABS: Rapid COVID-19 Molecular Undetected (Undetected)
[2021-03-18 20:51] LABS: ALT 16 U/L (7-52); AST 28 U/L (13-39); Alkaline Phosphatase 83 U/L (35-149); Anion Gap 10 mmol/L (2-11); Blood Urea Nitrogen 65 mg/dL (6-24); C Reactive Protein 304.16 mg/L (<8.01); CO2 Carbon Dioxide 22 mmol/L (22-32); Calcium 9.7 mg/dL (8.6-10.3); Chloride 88 mmol/L (101-111); Globulin 2.9 g/dL (2-4); Glucose 127 mg/dL (70-100); Indirect Bilirubin 0.3 mg/dL (0.3-1.0); Potassium 3.6 mmol/L (3.5-5.0); Sodium 120 mmol/L (135-145); Total Protein 5.9 g/dL (6.4-8.9); eGFR CKD-EPI 13.7 (>60)
[2021-03-18 20:52] LABS: Troponin I 0.01 ng/mL (<0.03)
[2021-03-18 21:01] LABS: INR 1.2 (0.86-1.15)
[2021-03-18 21:05] LABS: Urine Appearance Turbid; Urine Bilirubin Negative (Negative); Urine Blood 2+ (Negative); Urine Color Yellow; Urine Glucose Negative (Negative); Urine Ketones Negative (Negative); Urine Nitrite Negative (Negative); Urine Protein 2+(100 mg/dL) (Negative); Urine Specific Gravity 1.009 (1.002-1.030); Urine Urobilinogen Negative (Negative)
[2021-03-18 21:10] LABS: Osmolality Serum 280 mOsm/kg (275-295)
[2021-03-18 21:13] LABS: Urine Bacteria Absent (Absent); Urine Red Blood Cell 3+(>10/hpf) (Absent); Urine White Blood Cell 3+(>20/hpf) (Absent)
[2021-03-18] MEDS ORDERED: Albuterol HFA INHALER 8 gm MDI INH PRN (21:14)
[2021-03-18 21:15] LABS: Acetaminophen < 15 mcg/mL; Salicylate < 2.50 mg/dL (<30); Urine Benzodiazepine Screen None Detected (None Detect); Urine Cannabinoids Screen None Detected (None Detect); Urine Opiates Screen None Detected (None Detect)
[2021-03-18 21:15] LABS: Urine Creatinine Concentration 47.67 mg/dL
[2021-03-18] MEDS ORDERED: NS 0.9% 1000 ml BAG 1,000 ML IV SCH (21:15)
[2021-03-18 21:31] LABS: TSH Ultra Thyroid Stim Horm 0.35 mcIU/mL (0.34-5.60)
[2021-03-18 23:54] LABS: Urine Osmo 162 mOsm/kg (150-1150)
[2021-03-19 01:38] LABS: Total Iron Binding Capacity 207 mcg/dL (250-450); Transferrin 148 mg/dL (203-362)
[2021-03-19 01:43] LABS: % Iron Saturation 10 % (15-55); Iron < 20 ug/dL (50-212); Unsaturated Iron Binding < 192 ug/dL
[2021-03-19 01:59] LABS: Ferritin 385.6 ng/mL (11-307)
[2021-03-19 02:04] LABS: Vitamin B12 1359 pg/mL (180-914)
[2021-03-19 03:00] LABS: Calcium 9.6 mg/dL (8.6-10.3)
[2021-03-19 04:46] LABS: Hematocrit 32 % (35-47); Hemoglobin 10.7 g/dL (12.0-16.0); Mean Corpuscular HGB Conc 34 g/dL (31-36); Mean Corpuscular Hemoglobin 32 pg (27-31); Mean Corpuscular Volume 93 fL (80-97); Mean Platelet Volume 7.7 fL (7.4-10.4); Platelet Count 127 10^3/uL (150-450); Red Blood Count 3.39 10^6 /uL (3.70-4.87); Red Cell Distribution Width 15 % (10-15); White Blood Count 16.1 10^3/uL (3.5-10.8)
[2021-03-19 05:02] LABS: Calcium 9.4 mg/dL (8.6-10.3); Magnesium 1.7 mg/dL (1.9-2.7); Potassium 3.8 mmol/L (3.5-5.0); eGFR CKD-EPI 14.6 (>60)
[2021-03-19 05:22] LABS: ABS Eosinophils 0.1 10^3/ul (0-0.6); ABS Lymphocytes 0.4 10^3/ul (1.0-4.8); ABS Monocytes 0.7 10^3/ul (0-0.8); Eosinophil % 0.3 %; Lymphocyte % 2.5 %
[2021-03-19] MEDS ORDERED: Magnesium Sulfate IV 3 GM in NS 0.9% 100 ml BAG 100 ML IVPB ONE (07:36)
[2021-03-19] MEDS: SPIRIVA Respimat (tiotropium) 2.5 mcg/inh Inhaler INH SCH (08:26)
[2021-03-19 08:52] LABS: Phosphorus 4.5 mg/dL (2.5-5.0)
[2021-03-19] MEDS: NS 0.9% 1000 ml BAG 1,000 ML IV SCH ×2 (12:10→21:11)
[2021-03-19] MEDS: cefTRIAXone 1 gm/50 mL NS BAG 1 GM/50 ML BAG IVPB SCH (13:46)
[2021-03-19] MEDS: Heparin 5000 UNITS/ML 1 mL VIAL SUBCUT SCH ×2 (13:47→21:10)
[2021-03-20] MEDS: Heparin 5000 UNITS/ML 1 mL VIAL SUBCUT SCH (05:51)
[2021-03-20] MEDS: NS 0.9% 1000 ml BAG 1,000 ML IV SCH (05:51)
[2021-03-20 06:43] LABS: Hematocrit 32 % (35-47); Hemoglobin 10.7 g/dL (12.0-16.0); Mean Corpuscular HGB Conc 34 g/dL (31-36); Mean Corpuscular Hemoglobin 31 pg (27-31); Mean Corpuscular Volume 93 fL (80-97); Platelet Count 179 10^3/uL (150-450); Red Blood Count 3.41 10^6 /uL (3.70-4.87); Red Cell Distribution Width 16 % (10-15); White Blood Count 19.1 10^3/uL (3.5-10.8)
[2021-03-20 07:11] LABS: Calcium 8.8 mg/dL (8.6-10.3); Magnesium 2.3 mg/dL (1.9-2.7); Phosphorus 4.5 mg/dL (2.5-5.0); Potassium 3.5 mmol/L (3.5-5.0); eGFR CKD-EPI 18.8 (>60)
[2021-03-20 07:30] LABS: ABS Eosinophils 0.1 10^3/ul (0-0.6); ABS Lymphocytes 0.7 10^3/ul (1.0-4.8); ABS Monocytes 1.4 10^3/ul (0-0.8); ABS Neutrophils 16.8 10^3/ul (1.5-7.7); Eosinophil % 0.6 %; Lymphocyte % 3.7 %
[2021-03-20] MEDS ORDERED: Thiamine 100 MG/ML 2 ml VIAL 500 MG in NS 0.9% 250 ml 250 ML IV ONE (07:41)
[2021-03-20] MEDS: SPIRIVA Respimat (tiotropium) 2.5 mcg/inh Inhaler INH SCH (08:17)
[2021-03-20] MEDS: Enoxaparin 30 MG/0.3 ML SYR SUBCUT SCH (10:04)
[2021-03-20] MEDS: Multivitamins/Minerals TAB PO SCH (10:05)
[2021-03-20 12:40] LABS: Calcium 8.6 mg/dL (8.6-10.3); Potassium 3.9 mmol/L (3.5-5.0)
[2021-03-20] MEDS: cefTRIAXone 1 gm/50 mL NS BAG 1 GM/50 ML BAG IVPB SCH (15:24)
[2021-03-20] MEDS: Thiamine 100 MG/ML 2 ml VIAL 500 MG in NS 0.9% 250 ml 250 ML IV SCH (16:44)
[2021-03-20] MEDS: Mometasone/Formoter 200/5 MDI INH SCH (21:59)
[2021-03-21] MEDS: Thiamine 100 MG/ML 2 ml VIAL 500 MG in NS 0.9% 250 ml 250 ML IV SCH ×3 (00:29→16:12)
[2021-03-21 06:42] LABS: Hematocrit 29 % (35-47); Mean Corpuscular HGB Conc 34 g/dL (31-36); Mean Corpuscular Hemoglobin 32 pg (27-31); Mean Corpuscular Volume 94 fL (80-97); Mean Platelet Volume 7.9 fL (7.4-10.4); Platelet Count 218 10^3/uL (150-450); Red Blood Count 3.14 10^6 /uL (3.70-4.87); Red Cell Distribution Width 16 % (10-15); White Blood Count 20.4 10^3/uL (3.5-10.8)
[2021-03-21 06:46] LABS: ABS Basophils 0.1 10^3/ul (0-0.2); ABS Eosinophils 0.1 10^3/ul (0-0.6); ABS Lymphocytes 1.1 10^3/ul (1.0-4.8); ABS Monocytes 1.2 10^3/ul (0-0.8); Eosinophil % 0.4 %; Lymphocyte % 5.2 %; Nucleated Red Blood Cells % 0.2
[2021-03-21 06:55] LABS: Calcium 8.6 mg/dL (8.6-10.3); Magnesium 1.7 mg/dL (1.9-2.7); Phosphorus 4.2 mg/dL (2.5-5.0); Potassium 3.8 mmol/L (3.5-5.0); eGFR CKD-EPI 25.8 (>60)
[2021-03-21] MEDS: Mometasone/Formoter 200/5 MDI INH SCH ×2 (06:59→20:17)
[2021-03-21] MEDS: SPIRIVA Respimat (tiotropium) 2.5 mcg/inh Inhaler INH SCH (07:06)
[2021-03-21] MEDS ORDERED: Magnesium Sulfate 2 gm BAG 2 GM/50 ML BAG IVPB ONE (09:13)
[2021-03-21] MEDS: Enoxaparin 30 MG/0.3 ML SYR SUBCUT SCH (09:19)
[2021-03-21] MEDS: Multivitamins/Minerals TAB PO SCH (09:19)
[2021-03-21] MEDS: cefTRIAXone 1 gm/50 mL NS BAG 1 GM/50 ML BAG IVPB SCH (14:45)
[2021-03-21] MEDS ORDERED: Nicotine GUM 2MG FRUIT FLAVOR PO PRN (18:33)
[2021-03-22] MEDS: Thiamine 100 MG/ML 2 ml VIAL 500 MG in NS 0.9% 250 ml 250 ML IV SCH ×4 (00:09→23:34)
[2021-03-22 06:08] LABS: Hematocrit 30 % (35-47); Hemoglobin 10.4 g/dL (12.0-16.0); Mean Corpuscular HGB Conc 34 g/dL (31-36); Mean Corpuscular Hemoglobin 31 pg (27-31); Mean Corpuscular Volume 92 fL (80-97); Mean Platelet Volume 7.4 fL (7.4-10.4); Platelet Count 266 10^3/uL (150-450); Red Blood Count 3.31 10^6 /uL (3.70-4.87); Red Cell Distribution Width 15 % (10-15); White Blood Count 20.3 10^3/uL (3.5-10.8)
[2021-03-22 06:20] LABS: ABS Eosinophils 0.1 10^3/ul (0-0.6); ABS Lymphocytes 1.4 10^3/ul (1.0-4.8); ABS Monocytes 1.1 10^3/ul (0-0.8); ABS Neutrophils 17.7 10^3/ul (1.5-7.7); Eosinophil % 0.7 %; Lymphocyte % 6.7 %
[2021-03-22 06:25] LABS: Calcium 9.2 mg/dL (8.6-10.3); Potassium 3.8 mmol/L (3.5-5.0)
[2021-03-22 06:31] LABS: C Reactive Protein 184.14 mg/L (<8.01); eGFR CKD-EPI 33.7 (>60)
[2021-03-22] MEDS: SPIRIVA Respimat (tiotropium) 2.5 mcg/inh Inhaler INH SCH (08:20)
[2021-03-22] MEDS: Mometasone/Formoter 200/5 MDI INH SCH ×2 (08:20→19:37)
[2021-03-22] MEDS: Multivitamins/Minerals TAB PO SCH (08:31)
[2021-03-22] MEDS: Enoxaparin 30 MG/0.3 ML SYR SUBCUT SCH (08:33)
[2021-03-22 15:01] LABS: Influenza A Molecular Negative (Negative); Influenza B Molecular Negative (Negative)
[2021-03-22] MEDS: cefTRIAXone 1 gm/50 mL NS BAG 1 GM/50 ML BAG IVPB SCH (15:12)
[2021-03-22] MEDS: NS 0.9% 1000 ml BAG 1,000 ML IV SCH (15:51)
[2021-03-22 17:06] LABS: Urine Creatinine Concentration 21.44 mg/dL
[2021-03-22 19:22] LABS: Urine Osmo 274 mOsm/kg (150-1150)
[2021-03-23] MEDS: NS 0.9% 1000 ml BAG 1,000 ML IV SCH (06:00)
[2021-03-23] MEDS: Mometasone/Formoter 200/5 MDI INH SCH (07:39)
[2021-03-23] MEDS: SPIRIVA Respimat (tiotropium) 2.5 mcg/inh Inhaler INH SCH (07:39)
[2021-03-23] MEDS: Enoxaparin 30 MG/0.3 ML SYR SUBCUT SCH (08:23)
[2021-03-23] MEDS: Multivitamins/Minerals TAB PO SCH (08:23)
[2021-03-23 10:20] LABS: Hematocrit 32 % (35-47); Mean Corpuscular HGB Conc 34 g/dL (31-36); Mean Corpuscular Hemoglobin 31 pg (27-31); Mean Corpuscular Volume 91 fL (80-97); Mean Platelet Volume 7.2 fL (7.4-10.4); Platelet Count 353 10^3/uL (150-450); Red Blood Count 3.52 10^6 /uL (3.70-4.87); Red Cell Distribution Width 16 % (10-15); White Blood Count 23.8 10^3/uL (3.5-10.8)
[2021-03-23] MEDS: Thiamine 100 MG/ML 2 ml VIAL 500 MG in NS 0.9% 250 ml 250 ML IV SCH (10:27)
[2021-03-23 10:37] LABS: Calcium 9.1 mg/dL (8.6-10.3); Potassium 3.9 mmol/L (3.5-5.0); eGFR CKD-EPI 44.7 (>60)
[2021-03-23 11:11] VITALS: BP 132/65
[2021-03-23 11:26] LABS: ABS Basophils 0.1 10^3/ul (0-0.2); ABS Eosinophils 0.1 10^3/ul (0-0.6); ABS Lymphocytes 1.4 10^3/ul (1.0-4.8); ABS Monocytes 1.3 10^3/ul (0-0.8); ABS Neutrophils 20.9 10^3/ul (1.5-7.7); Eosinophil % 0.5 %; Lymphocyte % 6.1 %
[2021-03-23] MEDS: cefTRIAXone 1 gm/50 mL NS BAG 1 GM/50 ML BAG IVPB SCH (15:33)
== END 2021-03-23 18:00 | disposition home or self-care (01) | DRG 812 ==
LOC: ED 19:15 → EDHOLD 19:15 → INTOOBSV 19:30 → SUATTDRO 19:30 → OBSVTOIN 19:35 → ICU 19:42 → MEDTELE 03-19 18:16 → MED 03-22 16:00
PROVIDERS: ADMIT Internal Medicine; ATTEND Internal Medicine